=== PATIENT | female | born 1940 | race Caucasian/White ===

== ENCOUNTER 2019-11-24 12:40 | Emergency (ER) | payer MEDICARE, BC ==
[2019-11-24 13:38] LABS: #Basophils 0.1 thou/uL (0.0-0.2); #Eosinphils 0.2 thou/uL (0.0-0.7); #Lymphocytes 2.3 thou/uL (1.20-3.40); #Monocytes 0.8 thou/uL (0.11-0.59); %Basophils 0.9 % (0.0-1.0); %Eosinophils 1.8 % (0.0-10.0); %Lymphocytes 22.4 % (21.0-51.0); %Monocytes 7.9 % (0.0-10.0); Hemoglobin 11.6 g/dL (12.0-16.0); Mean Corpuscular HGB CONC 31.4 g/dL (32.0-36.0); Mean Corpuscular Hemoglobin 28.4 pg (27.0-31.0); Mean Corpuscular Volume 90.5 fL (78.0-98.0); Mean Platelet Volume 7.6 fL (7.4-10.4); Platelet Count 455 thou/uL (130-400); RBC Distribution Width 14.2 % (11.5-14.5); White Blood Cell (WBC) Count 10.4 thou/uL (4.8-10.8)
[2019-11-24 13:58] LABS: ALT (SGPT) 9 U/L (8-55); AST (SGOT) 12 U/L (5-34); Albumin 3.5 g/dL (3.4-4.8); Alkaline Phosphatase 103 U/L (40-110); Anion Gap 13 mmol/L (10-20); BUN (Urea Nitrogen) 21 mg/dL (9.8-20.1); Bilirubin, Total 0.5 mg/dL (0.2-1.2); Calc. Creatinine Clearance 0 mL/min (70-130); Calcium 9.9 mg/dL (7.8-10.44); Carbon Dioxide 28 mmol/L (23-31); Chloride 104 mmol/L (98-107); Estimated GFR-MDRD 71; Globulin 3.1 g/dL (2.4-3.5); Glucose 110 mg/dL (83-110); Protein, Total 6.6 g/dL (6.0-8.3); Sodium 141 mmol/L (136-145)
--- NOTE | 2019-11-24 14:31 | RAD ---
Exam: XR Foot Rt 3 View STANDARD HISTORY: Right foot wound. COMPARISON: None FINDINGS: There is a prominent soft tissue defect involving the posterior aspect right foot at the level of the posterior process of the calcaneus. Calcaneus could potentially be exposed given the degree of soft tissue defect. There is question of slight irregularity involving the posterior inferior portion of the calcaneus. Osteomyelitis in this region cannot be excluded, and MRI would be more sensitive study for further evaluation. Remote fracture and deformity of the right fifth metatarsal is seen. There is evidence of osteopenia greatest involving the tarsal bones and at the level of the metatarsal phalangeal joints in a juxta-articular location. No acute fracture is visualized. Subcutaneous soft tissue swelling is seen at the dorsal aspect of the foot greater at the level of th e forefoot. IMPRESSION: Large soft tissue defect posterior to the level of the calcaneus with slight irregularity involving t he more inferior aspect of the posterior process of the calcaneus. This could be related to overlying artifact, but subtle osseous destruction related to osteomyelitis could not be entirely exc luded. MRI of the right foot before and after the administration of intravenous contrast is recommended for further evaluation. Subcutaneous soft tissue swelling about the foot greatest involving the forefoot.
== END 2019-11-24 16:07 | disposition home or self-care (01) ==
LOC: ERS 12:40
DX: L97.429 Non-pressure chronic ulcer of left heel and midfoot with unspecified severity (principal); L97.419 Non-pressure chronic ulcer of right heel and midfoot with unspecified severity; L08.9 Local infection of the skin and subcutaneous tissue, unspecified; E11.9 Type 2 diabetes mellitus without complications; I10 Essential (primary) hypertension; Z85.3 Personal history of malignant neoplasm of breast
CPT/HCPCS: 36415; 80053; 85025; 85652; 86140

== ENCOUNTER 2022-03-21 06:28 | Inpatient (IN) | payer MEDICARE, MEDICAID ==
[2022-03-21 07:31] LABS: #Basophils 0.1 thou/uL (0.0-0.2); #Eosinphils 0.1 thou/uL (0.0-0.7); #Lymphocytes 2.5 thou/uL (1.20-3.40); #Monocytes 1.3 thou/uL (0.11-0.59); %Basophils 0.4 % (0.0-1.0); %Eosinophils 0.5 % (0.0-10.0); %Lymphocytes 16.6 % (21.0-51.0); %Monocytes 8.9 % (0.0-10.0); %Neutrophils 73.6 % (42.0-75.0); Mean Corpuscular HGB CONC 31.4 g/dL (32.0-36.0); Mean Corpuscular Hemoglobin 29.4 pg (27.0-31.0); Mean Corpuscular Volume 93.5 fl (78.0-98.0); Mean Platelet Volume 8.5 fL (7.4-10.4); Platelet Count 366 10x3/uL (130-400); RBC Distribution Width 12.2 % (11.5-14.5); Red Blood Cell (RBC) Count 4.43 mill/uL (4.20-5.40); White Blood Cell (WBC) Count 14.9 10x3/uL (4.8-10.8)
[2022-03-21 07:41] LABS: PTT 32.6 sec (22.9-36.1); Prothrombin Time 13.9 sec (12.0-14.7)
[2022-03-21 07:47] LABS: ALT (SGPT) 9 U/L (8-55); AST (SGOT) 11 U/L (5-34); Albumin 3.7 g/dL (3.4-4.8); Alkaline Phosphatase 90 U/L (40-110); Anion Gap 15 mmol/L (10-20); BUN (Urea Nitrogen) 30 mg/dL (9.8-20.1); Bilirubin, Total 0.2 mg/dL (0.2-1.2); Calc. Creatinine Clearance 0 mL/min (70-130); Calcium 9.9 mg/dL (7.8-10.44); Carbon Dioxide 26 mmol/L (23-31); Chloride 106 mmol/L (98-107); Estimated GFR 68; Globulin 3.5 g/dL (2.4-3.5); Glucose 75 mg/dL (83-110); Magnesium 1.9 mg/dL (1.6-2.6); Potassium 4.8 mmol/L (3.5-5.1); Protein, Total 7.2 g/dL (5.8-8.1); Sodium 142 mmol/L (136-145)
[2022-03-21] MEDS ORDERED: Cefepime 2 GM VIAL ONE (07:47)
[2022-03-21] MEDS ORDERED: Vancomycin 1.5 GRAM/300 ML BAG 1.5 GM in Premix Bag 1 BAG IVPB SCH (08:30)
[2022-03-21 09:32] LABS: SARS-CoV-2 NAA Rapid Test Not Detected (NotDetected)
[2022-03-21 10:28] LABS: Lactic Acid 3.1 mmol/L (0.5-2.2)
[2022-03-21] MEDS ORDERED: Dextrose 50% Abboject 50 ML SYRINGE SLOW IVP PRN (10:29)
[2022-03-21] MEDS ORDERED: Dextrose 5% in Water 1,000 ML IV PRN (10:29)
[2022-03-21] MEDS ORDERED: Ondansetron ODT 4 MG TAB PO PRN (10:30)
[2022-03-21] MEDS ORDERED: Senokot S 8.6-50 MG TAB PO PRN (10:30)
[2022-03-21] MEDS ORDERED: Ondansetron PF 4 MG/2 ML Vial IVP PRN (10:30)
[2022-03-21] MEDS ORDERED: Sodium Chloride 0.9% 250 ML IV SCH (10:45)
[2022-03-21] MEDS ORDERED: Heparin 1,000 UNITS/ML VIAL ONE (11:04)
[2022-03-21 13:41] VITALS: BMI 20.8
[2022-03-21] MEDS ORDERED: traMADol HCl 50 MG TAB PO PRN (16:20)
[2022-03-21] MEDS ORDERED: Milk Of Magnesia 30 ML UDCUP PO PRN (16:21)
[2022-03-21] MEDS ORDERED: Lisinopril 20 MG TAB PO SCH (16:45)
[2022-03-21] MEDS: Cefepime 1 GM in Sodium Chloride 0.9% 100 ML IVPB SCH (20:07)
[2022-03-21] MEDS: Melatonin 3 MG TAB PO SCH (20:08)
[2022-03-21] MEDS: Ferrous Sulfate 325 MG TAB PO SCH (20:08)
[2022-03-21] MEDS: hydrALAZINE 25 MG TAB PO SCH (20:08)
[2022-03-21] MEDS: cloNIDine 0.1 MG TAB PO PRN (22:53)
[2022-03-22 06:28] LABS: Anion Gap 9 mmol/L (10-20); BUN (Urea Nitrogen) 22 mg/dL (9.8-20.1); Calc. Creatinine Clearance 62 mL/min (70-130); Calcium 9.2 mg/dL (7.8-10.44); Carbon Dioxide 25 mmol/L (23-31); Chloride 110 mmol/L (98-107); Estimated GFR 82; Glucose 91 mg/dL (83-110); Potassium 4.3 mmol/L (3.5-5.1); Sodium 140 mmol/L (136-145)
[2022-03-22 07:17] LABS: #Basophils 0.1 thou/uL (0.0-0.2); #Eosinphils 0.2 thou/uL (0.0-0.7); #Lymphocytes 2.4 thou/uL (1.20-3.40); #Monocytes 0.7 thou/uL (0.11-0.59); #Neutrophils 7.4 thou/uL (1.40-6.50); %Basophils 0.9 % (0.0-1.0); %Eosinophils 1.7 % (0.0-10.0); %Lymphocytes 21.8 % (21.0-51.0); %Monocytes 6.7 % (0.0-10.0); %Neutrophils 68.8 % (42.0-75.0); Hemoglobin 11.8 g/dL (12.0-16.0); Mean Corpuscular HGB CONC 31.7 g/dL (32.0-36.0); Mean Corpuscular Hemoglobin 29.8 pg (27.0-31.0); Mean Corpuscular Volume 93.9 fl (78.0-98.0); Mean Platelet Volume 8.5 fL (7.4-10.4); Platelet Count 307 10x3/uL (130-400); RBC Distribution Width 12.1 % (11.5-14.5); Red Blood Cell (RBC) Count 3.95 mill/uL (4.20-5.40); White Blood Cell (WBC) Count 10.8 10x3/uL (4.8-10.8)
[2022-03-22 07:28] LABS: Hemoglobin A1c 5.8 % (4.0-6.0)
[2022-03-22] MEDS: Cefepime 1 GM in Sodium Chloride 0.9% 100 ML IVPB SCH ×2 (07:54→20:47)
[2022-03-22] MEDS: Lisinopril 20 MG TAB PO SCH (07:59)
[2022-03-22] MEDS: Ferrous Sulfate 325 MG TAB PO SCH ×3 (07:59→20:46)
[2022-03-22] MEDS: Polyethylene Glycol 3350 17 GM Packet PO SCH (07:59)
[2022-03-22] MEDS: Multivitamin W/ Minerals 1 TAB PO SCH (07:59)
[2022-03-22] MEDS: Ascorbic Acid 500 mg Chewable Tablet PO SCH (08:00)
[2022-03-22] MEDS: hydrALAZINE 25 MG TAB PO SCH ×2 (08:00→20:46)
[2022-03-22] MEDS: Vancomycin 1 GM in Premix Bag 1 BAG IVPB SCH (09:34)
[2022-03-22] MEDS: Melatonin 3 MG TAB PO SCH (20:46)
[2022-03-23] MEDS: cloNIDine 0.1 MG TAB PO PRN (05:31)
[2022-03-23 06:59] LABS: #Basophils 0.1 thou/uL (0.0-0.2); #Eosinphils 0.1 thou/uL (0.0-0.7); #Lymphocytes 2.9 thou/uL (1.20-3.40); #Monocytes 0.9 thou/uL (0.11-0.59); #Neutrophils 7.7 thou/uL (1.40-6.50); %Basophils 0.6 % (0.0-1.0); %Eosinophils 1.2 % (0.0-10.0); %Lymphocytes 24.7 % (21.0-51.0); %Monocytes 7.9 % (0.0-10.0); %Neutrophils 65.7 % (42.0-75.0); Hemoglobin 11.4 g/dL (12.0-16.0); Mean Corpuscular HGB CONC 32.7 g/dL (32.0-36.0); Mean Corpuscular Hemoglobin 30.2 pg (27.0-31.0); Mean Corpuscular Volume 92.4 fl (78.0-98.0); Mean Platelet Volume 7.9 fL (7.4-10.4); Platelet Count 234 10x3/uL (130-400); RBC Distribution Width 12.1 % (11.5-14.5); Red Blood Cell (RBC) Count 3.77 mill/uL (4.20-5.40); White Blood Cell (WBC) Count 11.7 10x3/uL (4.8-10.8)
[2022-03-23 07:18] LABS: Potassium 4.4 mmol/L (3.5-5.1); Sodium 139 mmol/L (136-145)
[2022-03-23 07:19] LABS: Anion Gap 13 mmol/L (10-20); BUN (Urea Nitrogen) 24 mg/dL (9.8-20.1); Calc. Creatinine Clearance 60 mL/min (70-130); Calcium 8.7 mg/dL (7.8-10.44); Carbon Dioxide 19 mmol/L (23-31); Chloride 111 mmol/L (98-107); Estimated GFR 78; Glucose 145 mg/dL (83-110)
[2022-03-23] MEDS: hydrALAZINE 25 MG TAB PO SCH ×4 (08:25→20:10)
[2022-03-23] MEDS: Multivitamin W/ Minerals 1 TAB PO SCH (08:25)
[2022-03-23] MEDS: Cefepime 1 GM in Sodium Chloride 0.9% 100 ML IVPB SCH ×2 (08:25→20:11)
[2022-03-23] MEDS: Ferrous Sulfate 325 MG TAB PO SCH ×3 (08:25→20:11)
[2022-03-23] MEDS: Lisinopril 20 MG TAB PO SCH ×2 (08:25→10:50)
[2022-03-23] MEDS: Polyethylene Glycol 3350 17 GM Packet PO SCH (08:25)
[2022-03-23] MEDS: Ascorbic Acid 500 mg Chewable Tablet PO SCH (08:26)
[2022-03-23 10:10] LABS: Vancomycin, Trough 14.9 ug/mL
[2022-03-23] MEDS: Vancomycin 1 GM in Premix Bag 1 BAG IVPB SCH (10:42)
[2022-03-23] MEDS: Melatonin 3 MG TAB PO SCH (20:10)
[2022-03-24] MEDS: Cefepime 1 GM in Sodium Chloride 0.9% 100 ML IVPB SCH ×2 (08:42→20:13)
[2022-03-24] MEDS: Polyethylene Glycol 3350 17 GM Packet PO SCH (08:47)
[2022-03-24] MEDS: Ascorbic Acid 500 mg Chewable Tablet PO SCH (08:48)
[2022-03-24] MEDS: Multivitamin W/ Minerals 1 TAB PO SCH (08:48)
[2022-03-24] MEDS: Aspirin 81 mg Enteric Coated Tablet PO SCH (08:48)
[2022-03-24] MEDS: Ferrous Sulfate 325 MG TAB PO SCH ×3 (08:49→20:12)
[2022-03-24] MEDS: hydrALAZINE 25 MG TAB PO SCH ×2 (08:55→20:11)
[2022-03-24] MEDS: Lisinopril 20 MG TAB PO SCH (08:55)
[2022-03-24] MEDS: Vancomycin 1 GM in Premix Bag 1 BAG IVPB SCH (10:08)
[2022-03-24 10:28] LABS: #Basophils 0.1 thou/uL (0.0-0.2); #Eosinphils 0.2 thou/uL (0.0-0.7); #Lymphocytes 2.9 thou/uL (1.20-3.40); #Monocytes 0.8 thou/uL (0.11-0.59); #Neutrophils 8.7 thou/uL (1.40-6.50); %Basophils 0.4 % (0.0-1.0); %Eosinophils 1.4 % (0.0-10.0); %Monocytes 6.6 % (0.0-10.0); %Neutrophils 68.6 % (42.0-75.0); Hemoglobin 11.5 g/dL (12.0-16.0); Mean Corpuscular HGB CONC 32.2 g/dL (32.0-36.0); Mean Corpuscular Hemoglobin 30.3 pg (27.0-31.0); Mean Corpuscular Volume 93.9 fl (78.0-98.0); Mean Platelet Volume 7.5 fL (7.4-10.4); Platelet Count 339 10x3/uL (130-400); RBC Distribution Width 12.1 % (11.5-14.5); Red Blood Cell (RBC) Count 3.79 mill/uL (4.20-5.40); White Blood Cell (WBC) Count 12.6 10x3/uL (4.8-10.8)
[2022-03-24 10:47] LABS: Anion Gap 13 mmol/L (10-20); BUN (Urea Nitrogen) 28 mg/dL (9.8-20.1); Calc. Creatinine Clearance 52 mL/min (70-130); Calcium 8.8 mg/dL (7.8-10.44); Carbon Dioxide 21 mmol/L (23-31); Cardiac Risk 6.2 (Less than 4.5); Chloride 111 mmol/L (98-107); Cholesterol 187 mg/dl (< 200 Desired); Estimated GFR 66; Glucose 232 mg/dL (83-110); HDL Cholesterol 30 mg/dL (>60 Neg Risk); LDL Cholesterol, Calculated 126 mg/dL; Potassium 4.1 mmol/L (3.5-5.1); Sodium 141 mmol/L (136-145); Triglycerides 155 mg/dL (Less than 150)
[2022-03-24] MEDS ORDERED: Dextrose 5% in Water 1,000 ML IV PRN (13:56)
[2022-03-24] MEDS ORDERED: Dextrose 50% Abboject 50 ML SYRINGE SLOW IVP PRN (13:56)
[2022-03-24] MEDS: HumaLOG 300 UNITS/3 ML VIAL SC PRN ×2 (18:34→20:27)
[2022-03-24] MEDS: Melatonin 3 MG TAB PO SCH (20:10)
[2022-03-24] MEDS: Atorvastatin Calcium 20 MG TAB PO SCH (20:12)
[2022-03-25] MEDS: cloNIDine 0.1 MG TAB PO PRN (00:09)
[2022-03-25] MEDS: hydrALAZINE 25 MG TAB PO SCH ×4 (05:51→20:31)
[2022-03-25] MEDS: Cefepime 1 GM in Sodium Chloride 0.9% 100 ML IVPB SCH ×2 (08:30→20:26)
[2022-03-25] MEDS: Aspirin 81 mg Enteric Coated Tablet PO SCH (08:44)
[2022-03-25] MEDS: Ascorbic Acid 500 mg Chewable Tablet PO SCH (08:44)
[2022-03-25] MEDS: Ferrous Sulfate 325 MG TAB PO SCH ×3 (08:44→20:30)
[2022-03-25] MEDS: Polyethylene Glycol 3350 17 GM Packet PO SCH (08:45)
[2022-03-25] MEDS: Multivitamin W/ Minerals 1 TAB PO SCH (08:45)
[2022-03-25] MEDS: Lisinopril 20 MG TAB PO SCH (08:45)
[2022-03-25 09:48] LABS: Vancomycin, Trough 19.3 ug/mL
[2022-03-25] MEDS: Vancomycin 1 GM in Premix Bag 1 BAG IVPB SCH (10:16)
[2022-03-25] MEDS: HumaLOG 300 UNITS/3 ML VIAL SC PRN ×3 (12:08→20:33)
[2022-03-25] MEDS: Acetaminophen 325 MG TAB PO PRN (18:38)
[2022-03-25] MEDS: Docusate 100 MG CAP PO SCH (20:31)
[2022-03-25] MEDS: Atorvastatin Calcium 20 MG TAB PO SCH (20:31)
[2022-03-25] MEDS: Melatonin 3 MG TAB PO SCH (20:32)
[2022-03-26 06:56] LABS: #Basophils 0.1 thou/uL (0.0-0.2); #Eosinphils 0.5 thou/uL (0.0-0.7); #Lymphocytes 3.7 thou/uL (1.20-3.40); #Monocytes 0.9 thou/uL (0.11-0.59); #Neutrophils 8.6 thou/uL (1.40-6.50); %Basophils 0.8 % (0.0-1.0); %Eosinophils 3.6 % (0.0-10.0); %Lymphocytes 26.6 % (21.0-51.0); %Monocytes 6.3 % (0.0-10.0); %Neutrophils 62.7 % (42.0-75.0); Mean Corpuscular HGB CONC 31.6 g/dL (32.0-36.0); Mean Corpuscular Hemoglobin 29.6 pg (27.0-31.0); Mean Corpuscular Volume 93.9 fl (78.0-98.0); Mean Platelet Volume 7.7 fL (7.4-10.4); Platelet Count 368 10x3/uL (130-400); RBC Distribution Width 12.1 % (11.5-14.5); Red Blood Cell (RBC) Count 3.72 mill/uL (4.20-5.40); White Blood Cell (WBC) Count 13.7 10x3/uL (4.8-10.8)
[2022-03-26 07:11] LABS: Anion Gap 13 mmol/L (10-20); BUN (Urea Nitrogen) 37 mg/dL (9.8-20.1); Calc. Creatinine Clearance 54 mL/min (70-130); Calcium 9.1 mg/dL (7.8-10.44); Carbon Dioxide 22 mmol/L (23-31); Chloride 111 mmol/L (98-107); Estimated GFR 69; Glucose 152 mg/dL (83-110); Potassium 4.5 mmol/L (3.5-5.1); Sodium 141 mmol/L (136-145)
[2022-03-26] MEDS: Polyethylene Glycol 3350 17 GM Packet PO SCH (08:14)
[2022-03-26] MEDS: Cefepime 1 GM in Sodium Chloride 0.9% 100 ML IVPB SCH ×2 (08:14→21:01)
[2022-03-26] MEDS: Lisinopril 20 MG TAB PO SCH (08:15)
[2022-03-26] MEDS: Ascorbic Acid 500 mg Chewable Tablet PO SCH (08:15)
[2022-03-26] MEDS: Aspirin 81 mg Enteric Coated Tablet PO SCH (08:15)
[2022-03-26] MEDS: hydrALAZINE 25 MG TAB PO SCH ×3 (08:15→21:08)
[2022-03-26] MEDS: Docusate 100 MG CAP PO SCH ×2 (08:15→21:01)
[2022-03-26] MEDS: Multivitamin W/ Minerals 1 TAB PO SCH (08:15)
[2022-03-26] MEDS: Ferrous Sulfate 325 MG TAB PO SCH ×3 (08:16→21:00)
[2022-03-26] MEDS: Vancomycin 1 GM in Premix Bag 1 BAG IVPB SCH (10:49)
[2022-03-26] MEDS: HumaLOG 300 UNITS/3 ML VIAL SC PRN ×3 (12:48→22:00)
[2022-03-26] MEDS: Atorvastatin Calcium 20 MG TAB PO SCH (21:01)
[2022-03-26] MEDS: Melatonin 3 MG TAB PO SCH (21:08)
[2022-03-27 07:29] LABS: #Basophils 0.1 thou/uL (0.0-0.2); #Eosinphils 0.5 thou/uL (0.0-0.7); #Lymphocytes 3.8 thou/uL (1.20-3.40); #Monocytes 1.1 thou/uL (0.11-0.59); #Neutrophils 10.1 thou/uL (1.40-6.50); %Basophils 0.6 % (0.0-1.0); %Eosinophils 3.4 % (0.0-10.0); %Lymphocytes 24.6 % (21.0-51.0); %Monocytes 6.8 % (0.0-10.0); %Neutrophils 64.7 % (42.0-75.0); Hemoglobin 11.9 g/dL (12.0-16.0); Mean Corpuscular HGB CONC 31.5 g/dL (32.0-36.0); Mean Corpuscular Hemoglobin 29.7 pg (27.0-31.0); Mean Corpuscular Volume 94.3 fl (78.0-98.0); Mean Platelet Volume 7.6 fL (7.4-10.4); Platelet Count 382 10x3/uL (130-400); RBC Distribution Width 12.3 % (11.5-14.5); White Blood Cell (WBC) Count 15.6 10x3/uL (4.8-10.8)
[2022-03-27 07:54] LABS: Anion Gap 12 mmol/L (10-20); BUN (Urea Nitrogen) 40 mg/dL (9.8-20.1); Calc. Creatinine Clearance 46 mL/min (70-130); Calcium 9.2 mg/dL (7.8-10.44); Carbon Dioxide 22 mmol/L (23-31); Chloride 111 mmol/L (98-107); Estimated GFR 57; Glucose 152 mg/dL (83-110); Potassium 4.4 mmol/L (3.5-5.1); Sodium 141 mmol/L (136-145)
[2022-03-27] MEDS: Cefepime 1 GM in Sodium Chloride 0.9% 100 ML IVPB SCH ×2 (08:06→20:48)
[2022-03-27] MEDS: Docusate 100 MG CAP PO SCH ×2 (08:07→20:46)
[2022-03-27] MEDS: hydrALAZINE 25 MG TAB PO SCH ×3 (08:07→20:46)
[2022-03-27] MEDS: Lisinopril 20 MG TAB PO SCH (08:08)
[2022-03-27] MEDS: Polyethylene Glycol 3350 17 GM Packet PO SCH (08:08)
[2022-03-27] MEDS: Aspirin 81 mg Enteric Coated Tablet PO SCH (08:08)
[2022-03-27] MEDS: Ascorbic Acid 500 mg Chewable Tablet PO SCH (08:08)
[2022-03-27] MEDS: Multivitamin W/ Minerals 1 TAB PO SCH (08:08)
[2022-03-27] MEDS: Ferrous Sulfate 325 MG TAB PO SCH ×3 (08:08→20:47)
[2022-03-27] MEDS: Vancomycin 1 GM in Premix Bag 1 BAG IVPB SCH (09:37)
[2022-03-27 09:56] LABS: Vancomycin, Trough 21.5 ug/mL
[2022-03-27] MEDS ORDERED: Vancomycin HCl 750 MG in Sodium Chloride 0.9% 250 ML 250 ML IVPB SCH (10:30)
[2022-03-27] MEDS: HumaLOG 300 UNITS/3 ML VIAL SC PRN ×2 (12:47→18:04)
[2022-03-27] MEDS: Atorvastatin Calcium 20 MG TAB PO SCH (20:47)
[2022-03-27] MEDS: Melatonin 3 MG TAB PO SCH (20:47)
[2022-03-27 22:36] LABS: Vancomycin, Random 22.8 ug/mL (See Comment)
[2022-03-28 06:47] LABS: #Basophils 0.1 thou/uL (0.0-0.2); #Eosinphils 0.6 thou/uL (0.0-0.7); #Lymphocytes 4.1 thou/uL (1.20-3.40); #Monocytes 1.1 thou/uL (0.11-0.59); #Neutrophils 9.3 thou/uL (1.40-6.50); %Basophils 0.6 % (0.0-1.0); %Eosinophils 3.8 % (0.0-10.0); %Lymphocytes 27.1 % (21.0-51.0); %Monocytes 7.4 % (0.0-10.0); Hemoglobin 11.6 g/dL (12.0-16.0); Mean Corpuscular HGB CONC 32.8 g/dL (32.0-36.0); Mean Corpuscular Hemoglobin 30.7 pg (27.0-31.0); Mean Corpuscular Volume 93.6 fl (78.0-98.0); Mean Platelet Volume 7.7 fL (7.4-10.4); Platelet Count 341 10x3/uL (130-400); RBC Distribution Width 12.3 % (11.5-14.5); Red Blood Cell (RBC) Count 3.78 mill/uL (4.20-5.40); White Blood Cell (WBC) Count 15.2 10x3/uL (4.8-10.8)
[2022-03-28 07:31] LABS: Anion Gap 10 mmol/L (10-20); BUN (Urea Nitrogen) 49 mg/dL (9.8-20.1); Calc. Creatinine Clearance 46 mL/min (70-130); Calcium 9.2 mg/dL (7.8-10.44); Carbon Dioxide 24 mmol/L (23-31); Chloride 112 mmol/L (98-107); Estimated GFR 58; Glucose 162 mg/dL (83-110); Potassium 4.9 mmol/L (3.5-5.1); Sodium 141 mmol/L (136-145)
[2022-03-28] MEDS: Cefepime 1 GM in Sodium Chloride 0.9% 100 ML IVPB SCH ×2 (08:20→19:22)
[2022-03-28] MEDS: Polyethylene Glycol 3350 17 GM Packet PO SCH (08:20)
[2022-03-28] MEDS: Lisinopril 20 MG TAB PO SCH (08:20)
[2022-03-28] MEDS: Multivitamin W/ Minerals 1 TAB PO SCH (08:21)
[2022-03-28] MEDS: hydrALAZINE 25 MG TAB PO SCH ×3 (08:21→20:02)
[2022-03-28] MEDS: Docusate 100 MG CAP PO SCH ×2 (08:21→20:02)
[2022-03-28] MEDS: Aspirin 81 mg Enteric Coated Tablet PO SCH (08:21)
[2022-03-28] MEDS: Ferrous Sulfate 325 MG TAB PO SCH ×3 (08:22→20:03)
[2022-03-28] MEDS: Ascorbic Acid 500 mg Chewable Tablet PO SCH (08:22)
[2022-03-28] MEDS: Vancomycin HCl 750 MG in Sodium Chloride 0.9% 250 ML 250 ML IVPB SCH (11:35)
[2022-03-28] MEDS: HumaLOG 300 UNITS/3 ML VIAL SC PRN ×3 (11:47→21:27)
[2022-03-28] MEDS: Acetaminophen 325 MG TAB PO PRN (17:13)
[2022-03-28] MEDS: Melatonin 3 MG TAB PO SCH (20:02)
[2022-03-28] MEDS: Atorvastatin Calcium 20 MG TAB PO SCH (20:03)
[2022-03-29 04:10] LABS: #Basophils 0.2 thou/uL (0.0-0.2); #Eosinphils 0.4 thou/uL (0.0-0.7); #Lymphocytes 3.7 thou/uL (1.20-3.40); #Monocytes 1.1 thou/uL (0.11-0.59); %Basophils 1.2 % (0.0-1.0); %Eosinophils 3.3 % (0.0-10.0); %Lymphocytes 27.6 % (21.0-51.0); %Monocytes 7.8 % (0.0-10.0); %Neutrophils 60.1 % (42.0-75.0); Hemoglobin 10.2 g/dL (12.0-16.0); Mean Corpuscular HGB CONC 32.2 g/dL (32.0-36.0); Mean Corpuscular Hemoglobin 30.1 pg (27.0-31.0); Mean Corpuscular Volume 93.4 fl (78.0-98.0); Mean Platelet Volume 8.2 fL (7.4-10.4); Platelet Count 307 10x3/uL (130-400); RBC Distribution Width 12.4 % (11.5-14.5); Red Blood Cell (RBC) Count 3.39 mill/uL (4.20-5.40); White Blood Cell (WBC) Count 13.4 10x3/uL (4.8-10.8)
[2022-03-29 04:32] LABS: Anion Gap 13 mmol/L (10-20); BUN (Urea Nitrogen) 54 mg/dL (9.8-20.1); Calc. Creatinine Clearance 47 mL/min (70-130); Calcium 8.8 mg/dL (7.8-10.44); Carbon Dioxide 20 mmol/L (23-31); Chloride 112 mmol/L (98-107); Estimated GFR 59; Glucose 159 mg/dL (83-110); Potassium 4.5 mmol/L (3.5-5.1); Sodium 140 mmol/L (136-145)
[2022-03-29] MEDS: HumaLOG 300 UNITS/3 ML VIAL SC PRN ×4 (05:19→22:18)
[2022-03-29] MEDS: Polyethylene Glycol 3350 17 GM Packet PO SCH (08:28)
[2022-03-29] MEDS: Aspirin 81 mg Enteric Coated Tablet PO SCH (08:29)
[2022-03-29] MEDS: Ferrous Sulfate 325 MG TAB PO SCH ×3 (08:29→20:07)
[2022-03-29] MEDS: hydrALAZINE 25 MG TAB PO SCH ×3 (08:29→20:08)
[2022-03-29] MEDS: Multivitamin W/ Minerals 1 TAB PO SCH (08:29)
[2022-03-29] MEDS: Docusate 100 MG CAP PO SCH ×2 (08:29→20:07)
[2022-03-29] MEDS: Lisinopril 20 MG TAB PO SCH (08:29)
[2022-03-29] MEDS: Ascorbic Acid 500 mg Chewable Tablet PO SCH (08:29)
[2022-03-29] MEDS: Cefepime 1 GM in Sodium Chloride 0.9% 100 ML IVPB SCH (08:30)
[2022-03-29] MEDS: Vancomycin HCl 750 MG in Sodium Chloride 0.9% 250 ML 250 ML IVPB SCH (10:36)
[2022-03-29] MEDS ORDERED: cefTRIAXone\\ROCEPHIN 2 GM in Sodium Chloride 0.9% 100 ML IVPB SCH (12:00)
[2022-03-29] MEDS: cefTRIAXone\\ROCEPHIN 2 GM in Sodium Chloride 0.9% 100 ML IVPB SCH (15:14)
[2022-03-29] MEDS: Atorvastatin Calcium 20 MG TAB PO SCH (20:07)
[2022-03-29] MEDS: Melatonin 3 MG TAB PO SCH (20:08)
[2022-03-29] MEDS: Acetaminophen 325 MG TAB PO PRN (20:08)
[2022-03-30] MEDS: cloNIDine 0.1 MG TAB PO PRN (05:23)
[2022-03-30] MEDS: Aspirin 81 mg Enteric Coated Tablet PO SCH (08:21)
[2022-03-30] MEDS: hydrALAZINE 25 MG TAB PO SCH ×3 (08:21→21:04)
[2022-03-30] MEDS: Ascorbic Acid 500 mg Chewable Tablet PO SCH (08:21)
[2022-03-30] MEDS: Ferrous Sulfate 325 MG TAB PO SCH ×3 (08:21→21:05)
[2022-03-30] MEDS: Polyethylene Glycol 3350 17 GM Packet PO SCH (08:22)
[2022-03-30] MEDS: Docusate 100 MG CAP PO SCH ×2 (08:22→21:04)
[2022-03-30] MEDS: Multivitamin W/ Minerals 1 TAB PO SCH (08:22)
[2022-03-30] MEDS: Lisinopril 20 MG TAB PO SCH (08:22)
[2022-03-30] MEDS: Vancomycin HCl 750 MG in Sodium Chloride 0.9% 250 ML 250 ML IVPB SCH (09:27)
[2022-03-30 10:38] LABS: Vancomycin, Trough 27.9 ug/mL
[2022-03-30] MEDS: cefTRIAXone\\ROCEPHIN 2 GM in Sodium Chloride 0.9% 100 ML IVPB SCH (14:49)
[2022-03-30] MEDS: Melatonin 3 MG TAB PO SCH (21:05)
[2022-03-30] MEDS: Atorvastatin Calcium 20 MG TAB PO SCH (21:05)
[2022-03-30] MEDS: HumaLOG 300 UNITS/3 ML VIAL SC PRN (21:11)
[2022-03-31 04:32] LABS: #Basophils 0.1 thou/uL (0.0-0.2); #Eosinphils 0.5 thou/uL (0.0-0.7); #Monocytes 1.3 thou/uL (0.11-0.59); #Neutrophils 10.1 thou/uL (1.40-6.50); %Basophils 0.7 % (0.0-1.0); %Eosinophils 2.9 % (0.0-10.0); %Lymphocytes 25.2 % (21.0-51.0); %Monocytes 7.9 % (0.0-10.0); %Neutrophils 63.3 % (42.0-75.0); Hemoglobin 11.3 g/dL (12.0-16.0); Mean Corpuscular HGB CONC 35.1 g/dL (32.0-36.0); Mean Corpuscular Hemoglobin 32.9 pg (27.0-31.0); Mean Corpuscular Volume 93.7 fl (78.0-98.0); Mean Platelet Volume 7.9 fL (7.4-10.4); Platelet Count 333 10x3/uL (130-400); RBC Distribution Width 12.5 % (11.5-14.5); Red Blood Cell (RBC) Count 3.44 mill/uL (4.20-5.40)
[2022-03-31] MEDS: Aspirin 81 mg Enteric Coated Tablet PO SCH (08:51)
[2022-03-31] MEDS: Lisinopril 20 MG TAB PO SCH (08:51)
[2022-03-31] MEDS: hydrALAZINE 25 MG TAB PO SCH ×3 (08:51→20:11)
[2022-03-31] MEDS: Ascorbic Acid 500 mg Chewable Tablet PO SCH (08:51)
[2022-03-31] MEDS: Multivitamin W/ Minerals 1 TAB PO SCH (08:51)
[2022-03-31] MEDS: Ferrous Sulfate 325 MG TAB PO SCH ×3 (08:51→20:11)
[2022-03-31] MEDS: Polyethylene Glycol 3350 17 GM Packet PO SCH (08:51)
[2022-03-31] MEDS: Docusate 100 MG CAP PO SCH ×2 (08:52→20:11)
[2022-03-31 10:24] LABS: Vancomycin, Random 17.8 ug/mL (See Comment)
[2022-03-31] MEDS: Vancomycin HCl 500 MG in Sodium Chloride 0.9% 100 ML IVPB SCH (11:54)
[2022-03-31] MEDS: HumaLOG 300 UNITS/3 ML VIAL SC PRN ×2 (12:02→16:58)
[2022-03-31] MEDS: cefTRIAXone\\ROCEPHIN 2 GM in Sodium Chloride 0.9% 100 ML IVPB SCH (14:31)
[2022-03-31] MEDS ORDERED: traMADol HCl 50 MG TAB PO PRN (17:49)
[2022-03-31] MEDS: Atorvastatin Calcium 20 MG TAB PO SCH (20:10)
[2022-03-31] MEDS: Melatonin 3 MG TAB PO SCH (20:11)
[2022-04-01 04:11] LABS: #Basophils 0.1 thou/uL (0.0-0.2); #Eosinphils 0.4 thou/uL (0.0-0.7); #Lymphocytes 4.2 thou/uL (1.20-3.40); #Monocytes 1.4 thou/uL (0.11-0.59); %Basophils 0.7 % (0.0-1.0); %Eosinophils 2.3 % (0.0-10.0); %Lymphocytes 27.9 % (21.0-51.0); %Monocytes 9.1 % (0.0-10.0); %Neutrophils 59.9 % (42.0-75.0); Hemoglobin 10.9 g/dL (12.0-16.0); Mean Corpuscular HGB CONC 31.5 g/dL (32.0-36.0); Mean Corpuscular Hemoglobin 29.6 pg (27.0-31.0); Mean Platelet Volume 8.1 fL (7.4-10.4); Platelet Count 336 10x3/uL (130-400); RBC Distribution Width 12.6 % (11.5-14.5); Red Blood Cell (RBC) Count 3.66 mill/uL (4.20-5.40); White Blood Cell (WBC) Count 15.1 10x3/uL (4.8-10.8)
[2022-04-01 04:28] LABS: Anion Gap 13 mmol/L (10-20); BUN (Urea Nitrogen) 53 mg/dL (9.8-20.1); Calc. Creatinine Clearance 39 mL/min (70-130); Calcium 9.1 mg/dL (7.8-10.44); Carbon Dioxide 24 mmol/L (23-31); Chloride 110 mmol/L (98-107); Estimated GFR 47; Glucose 157 mg/dL (83-110); Potassium 5.3 mmol/L (3.5-5.1); Sodium 142 mmol/L (136-145)
[2022-04-01] MEDS: Lisinopril 20 MG TAB PO SCH (08:20)
[2022-04-01] MEDS: Ascorbic Acid 500 mg Chewable Tablet PO SCH (08:20)
[2022-04-01] MEDS: Multivitamin W/ Minerals 1 TAB PO SCH (08:21)
[2022-04-01] MEDS: Aspirin 81 mg Enteric Coated Tablet PO SCH (08:21)
[2022-04-01] MEDS: hydrALAZINE 25 MG TAB PO SCH ×3 (08:21→20:42)
[2022-04-01] MEDS: Docusate 100 MG CAP PO SCH ×2 (08:21→20:42)
[2022-04-01] MEDS: Ferrous Sulfate 325 MG TAB PO SCH ×3 (08:21→20:43)
[2022-04-01] MEDS: Polyethylene Glycol 3350 17 GM Packet PO SCH (08:22)
[2022-04-01] MEDS: Sodium Chloride 0.9% 1,000 ML IV SCH (11:14)
[2022-04-01] MEDS: Vancomycin HCl 500 MG in Sodium Chloride 0.9% 100 ML IVPB SCH (12:25)
[2022-04-01] MEDS: cefTRIAXone\\ROCEPHIN 2 GM in Sodium Chloride 0.9% 100 ML IVPB SCH (15:35)
[2022-04-01] MEDS: HumaLOG 300 UNITS/3 ML VIAL SC PRN (18:07)
[2022-04-01] MEDS: Melatonin 3 MG TAB PO SCH (20:43)
[2022-04-01] MEDS: Atorvastatin Calcium 20 MG TAB PO SCH (20:43)
[2022-04-02] MEDS: Sodium Chloride 0.9% 1,000 ML IV SCH ×2 (01:52→16:34)
[2022-04-02 05:42] LABS: Anion Gap 11 mmol/L (10-20); BUN (Urea Nitrogen) 49 mg/dL (9.8-20.1); Calc. Creatinine Clearance 48 mL/min (70-130); Carbon Dioxide 24 mmol/L (23-31); Chloride 112 mmol/L (98-107); Estimated GFR 60; Glucose 139 mg/dL (83-110); Potassium 4.7 mmol/L (3.5-5.1); Sodium 142 mmol/L (136-145)
[2022-04-02 08:12] VITALS: TEMP 97.5
[2022-04-02] MEDS: hydrALAZINE 25 MG TAB PO SCH ×2 (08:15→14:43)
[2022-04-02] MEDS: Docusate 100 MG CAP PO SCH (08:16)
[2022-04-02] MEDS: Lisinopril 20 MG TAB PO SCH (08:16)
[2022-04-02] MEDS: Ferrous Sulfate 325 MG TAB PO SCH ×2 (08:17→14:43)
[2022-04-02] MEDS: Multivitamin W/ Minerals 1 TAB PO SCH (08:17)
[2022-04-02] MEDS: Ascorbic Acid 500 mg Chewable Tablet PO SCH (08:17)
[2022-04-02] MEDS: Polyethylene Glycol 3350 17 GM Packet PO SCH (08:17)
[2022-04-02] MEDS: Aspirin 81 mg Enteric Coated Tablet PO SCH (08:17)
[2022-04-02 11:45] LABS: Vancomycin, Trough 13.1 ug/mL
[2022-04-02] MEDS ORDERED: Vancomycin HCl 750 MG in Sodium Chloride 0.9% 250 ML 250 ML IVPB SCH (12:30)
[2022-04-02] MEDS: cefTRIAXone\\ROCEPHIN 2 GM in Sodium Chloride 0.9% 100 ML IVPB SCH (14:43)
[2022-04-02 14:52] VITALS: BP 180/80
[2022-04-02] MEDS: cloNIDine 0.1 MG TAB PO PRN (15:12)
[2022-04-03] MEDS ORDERED: Vancomycin HCl 750 MG in Sodium Chloride 0.9% 250 ML 250 ML IVPB SCH (13:00)
== END 2022-04-02 18:50 | DRG 871 ==
LOC: ERS 06:28 → T4-B 10:02
PROVIDERS: ADMIT Family Medicine; ATTEND Family Medicine
PROC: 3E03329 Introduction of Other Anti-infective into Peripheral Vein, Percutaneous Approach (ICD-10-PCS; principal; 2022-03-21)
PROC: 02HV33Z Insertion of Infusion Device into Superior Vena Cava, Percutaneous Approach (ICD-10-PCS; 2022-03-21)
PROC: B5181ZA Fluoroscopy of Superior Vena Cava using Low Osmolar Contrast, Guidance (ICD-10-PCS; 2022-03-21)
PROC: B548ZZA Ultrasonography of Superior Vena Cava, Guidance (ICD-10-PCS; 2022-03-21)
PROC: 3E04329 Introduction of Other Anti-infective into Central Vein, Percutaneous Approach (ICD-10-PCS; 2022-03-26)
DX: A41.02 Sepsis due to Methicillin resistant Staphylococcus aureus (principal); Z66 Do not resuscitate; A41.4 Sepsis due to anaerobes; Z20.822 Contact with and (suspected) exposure to COVID-19; Z23 Encounter for immunization; L89.614 Pressure ulcer of right heel, stage 4; L89.624 Pressure ulcer of left heel, stage 4; L97.422 Non-pressure chronic ulcer of left heel and midfoot with fat layer exposed; M86.8X7 Other osteomyelitis, ankle and foot; N17.9 Acute kidney failure, unspecified; I48.20 Chronic atrial fibrillation, unspecified; E87.20 Acidosis, unspecified; E11.621 Type 2 diabetes mellitus with foot ulcer; E11.69 Type 2 diabetes mellitus with other specified complication; E87.5 Hyperkalemia; E11.51 Type 2 diabetes mellitus with diabetic peripheral angiopathy without gangrene; F03.90 Unspecified dementia, unspecified severity, without behavioral disturbance, psychotic disturbance, mood disturbance, and anxiety; E11.40 Type 2 diabetes mellitus with diabetic neuropathy, unspecified; Z74.01 Bed confinement status; Z85.3 Personal history of malignant neoplasm of breast; Z88.2 Allergy status to sulfonamides; Z88.8 Allergy status to other drugs, medicaments and biological substances; Z79.899 Other long term (current) drug therapy; Z79.4 Long term (current) use of insulin; Z99.3 Dependence on wheelchair
CPT/HCPCS: 36415; 36416; 36569; 71045; 80048; 80053; 80061; 80202; 83036; 83605; 83735; 84443; 84484; 85025; 85610; 85652; 85730; 86140; 87040; 87070; 87077; 87186; 87205; 87811; 90471; 90732; 93005; 93923; 94760; 96361; 96365; 96367; 97139; C1751; G0009; J0692; J0696; J1644; J1815; J3370; J3490; J7050

== ENCOUNTER 2022-06-26 11:51 | Emergency (ER) | payer MEDICARE, OTHER | END 2022-06-26 17:43 | LOC: ERS 11:51 | DX: R60.0 Localized edema (principal); I70.90 Unspecified atherosclerosis; I73.9 Peripheral vascular disease, unspecified; E11.9 Type 2 diabetes mellitus without complications; I10 Essential (primary) hypertension | CPT/HCPCS: 93923; 99283 ==

== ENCOUNTER 2022-07-21 10:32 | Inpatient (IN) | payer MEDICARE, MEDICAID ==
[2022-07-21 11:51] LABS: ALT (SGPT) 9 U/L (8-55); AST (SGOT) 12 U/L (5-34); Albumin 2.9 g/dL (3.4-4.8); Alkaline Phosphatase 110 U/L (40-110); Anion Gap 16 mmol/L (10-20); BUN (Urea Nitrogen) 39 mg/dL (9.8-20.1); Bilirubin, Total Less than 0.2 mg/dL (0.2-1.2); Calc. Creatinine Clearance 0 mL/min (70-130); Calcium 9.7 mg/dL (7.8-10.44); Carbon Dioxide 21 mmol/L (23-31); Chloride 104 mmol/L (98-107); Estimated GFR 52; Globulin 3.6 g/dL (2.4-3.5); Glucose 287 mg/dL (83-110); Potassium 5.6 mmol/L (3.5-5.1); Protein, Total 6.5 g/dL (5.8-8.1); Sodium 135 mmol/L (136-145)
[2022-07-21 12:38] LABS: #Eosinphils 0.1 thou/uL (0.0-0.7); #Lymphocytes 1.8 thou/uL (1.20-3.40); #Neutrophils 13.5 thou/uL (1.40-6.50); %Basophils 0.2 % (0.0-1.0); %Eosinophils 0.7 % (0.0-10.0); %Lymphocytes 10.6 % (21.0-51.0); %Monocytes 6.3 % (0.0-10.0); %Neutrophils 82.2 % (42.0-75.0); Hemoglobin 10.7 g/dL (12.0-16.0); Mean Corpuscular HGB CONC 31.6 g/dL (32.0-36.0); Mean Corpuscular Hemoglobin 29.5 pg (27.0-31.0); Mean Corpuscular Volume 93.4 fl (78.0-98.0); Mean Platelet Volume 7.9 fL (7.4-10.4); Platelet Count 406 10x3/uL (130-400); RBC Distribution Width 11.8 % (11.5-14.5); Red Blood Cell (RBC) Count 3.63 mill/uL (4.20-5.40); White Blood Cell (WBC) Count 16.5 10x3/uL (4.8-10.8)
[2022-07-21] MEDS ORDERED: cefTRIAXone (ROCEPHIN) 2 GM VIAL ONE (12:50)
[2022-07-21] MEDS ORDERED: Ondansetron ODT 4 MG TAB PO PRN (14:16)
[2022-07-21 14:19] LABS: Anion Gap 16 mmol/L (10-20); BUN (Urea Nitrogen) 43 mg/dL (9.8-20.1); Calc. Creatinine Clearance 0 mL/min (70-130); Calcium 9.8 mg/dL (7.8-10.44); Carbon Dioxide 22 mmol/L (23-31); Chloride 104 mmol/L (98-107); Estimated GFR 53; Glucose 262 mg/dL (83-110); Potassium 5.6 mmol/L (3.5-5.1); Sodium 136 mmol/L (136-145)
[2022-07-21] MEDS ORDERED: Dextrose 5% in Water 1,000 ML IV PRN (14:25)
[2022-07-21] MEDS ORDERED: Dextrose 50% Abboject 50 ML SYRINGE SLOW IVP PRN (14:25)
[2022-07-21] MEDS ORDERED: Meropenem 1 GM in Sodium Chloride 0.9% 100 ML IVPB SCH ×2 (14:30→15:15)
[2022-07-21] MEDS ORDERED: LOKELMA 10 GM PACKET PO SCH (14:45)
[2022-07-21] MEDS ORDERED: Vancomycin 1.5 GRAM/300 ML BAG 1.5 GM in Premix Bag 1 BAG IVPB SCH (15:30)
[2022-07-21] MEDS: Sodium Chloride 0.9% 1,000 ML IV SCH (18:33)
[2022-07-22 00:56] VITALS: BMI 25.4
[2022-07-22] MEDS: traMADol HCl 50 MG TAB PO SCH ×3 (01:07→20:32)
[2022-07-22] MEDS: Melatonin 3 MG TAB PO SCH ×2 (01:08→20:34)
[2022-07-22] MEDS: hydrALAZINE 25 MG TAB PO SCH ×3 (01:08→20:35)
[2022-07-22] MEDS: Meropenem 1 GM in Sodium Chloride 0.9% 100 ML IVPB SCH ×2 (01:32→16:49)
[2022-07-22 05:15] LABS: #Eosinphils 0.2 thou/uL (0.0-0.7); #Monocytes 1.3 thou/uL (0.11-0.59); #Neutrophils 13.6 thou/uL (1.40-6.50); %Basophils 0.2 % (0.0-1.0); %Eosinophils 1.2 % (0.0-10.0); %Lymphocytes 11.8 % (21.0-51.0); %Monocytes 7.3 % (0.0-10.0); %Neutrophils 79.4 % (42.0-75.0); Mean Corpuscular HGB CONC 33.1 g/dL (32.0-36.0); Mean Corpuscular Hemoglobin 30.8 pg (27.0-31.0); Mean Corpuscular Volume 92.9 fl (78.0-98.0); Mean Platelet Volume 7.4 fL (7.4-10.4); Platelet Count 427 10x3/uL (130-400); RBC Distribution Width 11.7 % (11.5-14.5); Red Blood Cell (RBC) Count 3.58 mill/uL (4.20-5.40); White Blood Cell (WBC) Count 17.2 10x3/uL (4.8-10.8)
[2022-07-22 05:36] LABS: Anion Gap 11 mmol/L (10-20); BUN (Urea Nitrogen) 40 mg/dL (9.8-20.1); Calc. Creatinine Clearance 53 mL/min (70-130); Calcium 9.6 mg/dL (7.8-10.44); Carbon Dioxide 23 mmol/L (23-31); Chloride 107 mmol/L (98-107); Estimated GFR 68; Glucose 161 mg/dL (83-110); Potassium 4.1 mmol/L (3.5-5.1); Sodium 137 mmol/L (136-145)
[2022-07-22] MEDS: Saccharomyces boulardii 250 MG CAP PO SCH (09:43)
[2022-07-22] MEDS: Polyethylene Glycol 3350 17 GM Packet PO SCH (09:43)
[2022-07-22] MEDS: HumaLOG 300 UNITS/3 ML VIAL SC PRN ×3 (12:30→20:46)
[2022-07-22] MEDS: Sodium Chloride 0.9% 1,000 ML IV SCH (16:50)
[2022-07-22] MEDS: Vancomycin 1 GM in Premix Bag 1 BAG IVPB SCH (20:35)
[2022-07-22] MEDS ORDERED: Milk Of Magnesia 30 ML UDCUP PO PRN (21:22)
[2022-07-23] MEDS: Meropenem 1 GM in Sodium Chloride 0.9% 100 ML IVPB SCH ×2 (01:12→14:43)
[2022-07-23] MEDS: hydrALAZINE 25 MG TAB PO SCH ×2 (08:56→21:06)
[2022-07-23] MEDS: Saccharomyces boulardii 250 MG CAP PO SCH (08:56)
[2022-07-23] MEDS: Polyethylene Glycol 3350 17 GM Packet PO SCH (08:56)
[2022-07-23] MEDS: traMADol HCl 50 MG TAB PO SCH ×2 (08:56→21:06)
[2022-07-23] MEDS: Multivitamin W/ Minerals 1 TAB PO SCH (08:56)
[2022-07-23] MEDS: Ferrous Sulfate 325 MG TAB PO SCH ×3 (08:57→21:07)
[2022-07-23] MEDS: Sodium Chloride 0.9% 1,000 ML IV SCH ×2 (08:57→21:12)
[2022-07-23] MEDS: Ascorbic Acid 500 mg Chewable Tablet PO SCH (08:57)
[2022-07-23 11:42] LABS: #Basophils 0.1 thou/uL (0.0-0.2); #Eosinphils 0.4 thou/uL (0.0-0.7); #Lymphocytes 2.1 thou/uL (1.20-3.40); #Monocytes 1.1 thou/uL (0.11-0.59); #Neutrophils 8.7 thou/uL (1.40-6.50); %Basophils 0.7 % (0.0-1.0); %Eosinophils 2.9 % (0.0-10.0); %Monocytes 8.7 % (0.0-10.0); %Neutrophils 70.8 % (42.0-75.0); Hemoglobin 10.7 g/dL (12.0-16.0); Mean Corpuscular HGB CONC 32.6 g/dL (32.0-36.0); Mean Corpuscular Hemoglobin 30.4 pg (27.0-31.0); Mean Corpuscular Volume 93.3 fl (78.0-98.0); Mean Platelet Volume 7.4 fL (7.4-10.4); Platelet Count 392 10x3/uL (130-400); RBC Distribution Width 11.8 % (11.5-14.5); White Blood Cell (WBC) Count 12.3 10x3/uL (4.8-10.8)
[2022-07-23 12:02] LABS: Anion Gap 12 mmol/L (10-20); BUN (Urea Nitrogen) 31 mg/dL (9.8-20.1); Calc. Creatinine Clearance 57 mL/min (70-130); Calcium 8.9 mg/dL (7.8-10.44); Carbon Dioxide 24 mmol/L (23-31); Chloride 108 mmol/L (98-107); Estimated GFR 75; Glucose 204 mg/dL (83-110); Potassium 4.3 mmol/L (3.5-5.1); Sodium 140 mmol/L (136-145)
[2022-07-23] MEDS: HumaLOG 300 UNITS/3 ML VIAL SC PRN ×2 (12:11→17:05)
[2022-07-23] MEDS: Melatonin 3 MG TAB PO SCH (21:06)
[2022-07-23] MEDS: Vancomycin 1 GM in Premix Bag 1 BAG IVPB SCH (21:08)
[2022-07-24] MEDS: Meropenem 1 GM in Sodium Chloride 0.9% 100 ML IVPB SCH (01:38)
[2022-07-24] MEDS: cloNIDine 0.1 MG TAB PO PRN (03:59)
[2022-07-24] MEDS: Ascorbic Acid 500 mg Chewable Tablet PO SCH (09:32)
[2022-07-24] MEDS: hydrALAZINE 25 MG TAB PO SCH ×2 (09:32→20:59)
[2022-07-24] MEDS: Multivitamin W/ Minerals 1 TAB PO SCH (09:33)
[2022-07-24] MEDS: traMADol HCl 50 MG TAB PO SCH ×2 (09:33→20:57)
[2022-07-24] MEDS: Ferrous Sulfate 325 MG TAB PO SCH ×3 (09:33→20:57)
[2022-07-24] MEDS: Saccharomyces boulardii 250 MG CAP PO SCH (09:33)
[2022-07-24] MEDS: Polyethylene Glycol 3350 17 GM Packet PO SCH (09:40)
[2022-07-24] MEDS: Sodium Chloride 0.9% 1,000 ML IV SCH (11:43)
[2022-07-24] MEDS: HumaLOG 300 UNITS/3 ML VIAL SC PRN ×2 (11:44→21:01)
[2022-07-24] MEDS ORDERED: Magnevist 469MG/ML 20 ML VIAL ONE (12:55)
[2022-07-24] MEDS: Cefepime 2 GM in Sodium Chloride 0.9% 100 ML IVPB SCH (14:37)
[2022-07-24] MEDS: Vancomycin 1 GM in Premix Bag 1 BAG IVPB SCH (20:59)
[2022-07-24] MEDS: Melatonin 3 MG TAB PO SCH ×2 (20:59→21:02)
[2022-07-25] MEDS: Cefepime 2 GM in Sodium Chloride 0.9% 100 ML IVPB SCH ×2 (01:43→13:32)
[2022-07-25 04:45] LABS: #Basophils 0.1 thou/uL (0.0-0.2); #Eosinphils 0.3 thou/uL (0.0-0.7); #Lymphocytes 2.5 thou/uL (1.20-3.40); #Monocytes 1.1 thou/uL (0.11-0.59); #Neutrophils 8.1 thou/uL (1.40-6.50); %Basophils 0.5 % (0.0-1.0); %Eosinophils 2.4 % (0.0-10.0); %Monocytes 9.3 % (0.0-10.0); %Neutrophils 66.9 % (42.0-75.0); Hemoglobin 10.6 g/dL (12.0-16.0); Mean Corpuscular HGB CONC 32.3 g/dL (32.0-36.0); Mean Corpuscular Hemoglobin 29.9 pg (27.0-31.0); Mean Corpuscular Volume 92.5 fl (78.0-98.0); Mean Platelet Volume 7.5 fL (7.4-10.4); Platelet Count 397 10x3/uL (130-400); RBC Distribution Width 11.7 % (11.5-14.5); Red Blood Cell (RBC) Count 3.55 mill/uL (4.20-5.40)
[2022-07-25 04:57] LABS: Anion Gap 11 mmol/L (10-20); BUN (Urea Nitrogen) 31 mg/dL (9.8-20.1); Calc. Creatinine Clearance 56 mL/min (70-130); Calcium 8.9 mg/dL (7.8-10.44); Carbon Dioxide 21 mmol/L (23-31); Chloride 108 mmol/L (98-107); Estimated GFR 73; Glucose 197 mg/dL (83-110); Potassium 4.2 mmol/L (3.5-5.1); Sodium 136 mmol/L (136-145)
[2022-07-25] MEDS: HumaLOG 300 UNITS/3 ML VIAL SC PRN (06:35)
[2022-07-25] MEDS: Sodium Chloride 0.9% 1,000 ML IV SCH (09:00)
[2022-07-25] MEDS: Saccharomyces boulardii 250 MG CAP PO SCH (09:01)
[2022-07-25] MEDS: traMADol HCl 50 MG TAB PO SCH ×2 (09:01→20:02)
[2022-07-25] MEDS: hydrALAZINE 25 MG TAB PO SCH ×2 (09:01→18:36)
[2022-07-25] MEDS: Ascorbic Acid 500 mg Chewable Tablet PO SCH (09:01)
[2022-07-25] MEDS: Ferrous Sulfate 325 MG TAB PO SCH ×3 (09:01→20:03)
[2022-07-25] MEDS: Multivitamin W/ Minerals 1 TAB PO SCH (09:01)
[2022-07-25] MEDS: Polyethylene Glycol 3350 17 GM Packet PO SCH (09:04)
[2022-07-25] MEDS: Lisinopril 10 MG TAB PO SCH (18:35)
[2022-07-25] MEDS: Vancomycin 1 GM in Premix Bag 1 BAG IVPB SCH (20:03)
[2022-07-25] MEDS: Melatonin 3 MG TAB PO SCH (20:03)
[2022-07-25 20:23] LABS: Vancomycin, Trough 20.8 ug/mL
[2022-07-26] MEDS: Cefepime 2 GM in Sodium Chloride 0.9% 100 ML IVPB SCH ×2 (02:00→14:37)
[2022-07-26] MEDS: cloNIDine 0.1 MG TAB PO PRN ×2 (03:18→12:10)
[2022-07-26] MEDS: Polyethylene Glycol 3350 17 GM Packet PO SCH (09:15)
[2022-07-26] MEDS: Multivitamin W/ Minerals 1 TAB PO SCH (09:16)
[2022-07-26] MEDS: traMADol HCl 50 MG TAB PO SCH ×2 (09:16→20:39)
[2022-07-26] MEDS: Saccharomyces boulardii 250 MG CAP PO SCH (09:20)
[2022-07-26] MEDS: hydrALAZINE 25 MG TAB PO SCH ×3 (09:20→20:40)
[2022-07-26] MEDS: Ascorbic Acid 500 mg Chewable Tablet PO SCH (09:21)
[2022-07-26] MEDS: Lisinopril 10 MG TAB PO SCH ×2 (09:21→20:40)
[2022-07-26] MEDS: Ferrous Sulfate 325 MG TAB PO SCH ×3 (09:22→20:41)
[2022-07-26] MEDS: HumaLOG 300 UNITS/3 ML VIAL SC PRN (12:04)
[2022-07-26] MEDS: Vancomycin 1 GM in Premix Bag 1 BAG IVPB SCH (20:39)
[2022-07-26] MEDS: Melatonin 3 MG TAB PO SCH (20:40)
[2022-07-27] MEDS: Cefepime 2 GM in Sodium Chloride 0.9% 100 ML IVPB SCH (02:34)
[2022-07-27] MEDS: cloNIDine 0.1 MG TAB PO PRN (05:38)
[2022-07-27 08:26] LABS: Anion Gap 12 mmol/L (10-20); BUN (Urea Nitrogen) 28 mg/dL (9.8-20.1); Calc. Creatinine Clearance 63 mL/min (70-130); Calcium 9.1 mg/dL (7.8-10.44); Carbon Dioxide 23 mmol/L (23-31); Chloride 106 mmol/L (98-107); Estimated GFR 84; Glucose 154 mg/dL (83-110); Potassium 4.2 mmol/L (3.5-5.1); Sodium 137 mmol/L (136-145)
[2022-07-27] MEDS: Multivitamin W/ Minerals 1 TAB PO SCH (08:38)
[2022-07-27] MEDS: Ascorbic Acid 500 mg Chewable Tablet PO SCH (08:38)
[2022-07-27] MEDS: Polyethylene Glycol 3350 17 GM Packet PO SCH (08:38)
[2022-07-27] MEDS: Saccharomyces boulardii 250 MG CAP PO SCH (08:38)
[2022-07-27] MEDS: traMADol HCl 50 MG TAB PO SCH ×2 (08:38→19:58)
[2022-07-27] MEDS: Ferrous Sulfate 325 MG TAB PO SCH ×3 (08:39→19:58)
[2022-07-27] MEDS: Lisinopril 10 MG TAB PO SCH (08:39)
[2022-07-27] MEDS: hydrALAZINE 25 MG TAB PO SCH ×3 (08:39→19:58)
[2022-07-27] MEDS ORDERED: Amlodipine 5 MG TAB PO SCH (10:30)
[2022-07-27] MEDS: Cefepime 1 GM in Sodium Chloride 0.9% 100 ML IVPB SCH (15:02)
[2022-07-27] MEDS: HumaLOG 300 UNITS/3 ML VIAL SC PRN (17:53)
[2022-07-27] MEDS: Vancomycin 1 GM in Premix Bag 1 BAG IVPB SCH (19:57)
[2022-07-27] MEDS: Lisinopril 20 MG TAB PO SCH (19:59)
[2022-07-27] MEDS: Melatonin 3 MG TAB PO SCH (19:59)
[2022-07-27 20:27] LABS: Vancomycin, Trough 25.2 ug/mL
[2022-07-28] MEDS: Cefepime 1 GM in Sodium Chloride 0.9% 100 ML IVPB SCH ×2 (02:07→15:07)
[2022-07-28] MEDS: Acetaminophen 325 MG TAB PO PRN (02:11)
[2022-07-28 08:23] LABS: #Basophils 0.1 thou/uL (0.0-0.2); #Eosinphils 0.4 thou/uL (0.0-0.7); #Lymphocytes 3.5 thou/uL (1.20-3.40); #Monocytes 1.3 thou/uL (0.11-0.59); #Neutrophils 10.5 thou/uL (1.40-6.50); %Basophils 0.7 % (0.0-1.0); %Eosinophils 2.7 % (0.0-10.0); %Lymphocytes 22.3 % (21.0-51.0); %Monocytes 8.2 % (0.0-10.0); %Neutrophils 66.2 % (42.0-75.0); Hemoglobin 11.3 g/dL (12.0-16.0); Mean Corpuscular HGB CONC 32.9 g/dL (32.0-36.0); Mean Corpuscular Volume 91.1 fl (78.0-98.0); Mean Platelet Volume 7.5 fL (7.4-10.4); Platelet Count 444 10x3/uL (130-400); RBC Distribution Width 11.9 % (11.5-14.5); Red Blood Cell (RBC) Count 3.77 mill/uL (4.20-5.40); White Blood Cell (WBC) Count 15.8 10x3/uL (4.8-10.8)
[2022-07-28] MEDS: Multivitamin W/ Minerals 1 TAB PO SCH (08:52)
[2022-07-28] MEDS: Polyethylene Glycol 3350 17 GM Packet PO SCH (08:52)
[2022-07-28] MEDS: hydrALAZINE 25 MG TAB PO SCH ×3 (08:52→21:49)
[2022-07-28] MEDS: Lisinopril 20 MG TAB PO SCH ×2 (08:52→21:49)
[2022-07-28] MEDS: Saccharomyces boulardii 250 MG CAP PO SCH (08:52)
[2022-07-28] MEDS: Ascorbic Acid 500 mg Chewable Tablet PO SCH (08:52)
[2022-07-28] MEDS: traMADol HCl 50 MG TAB PO SCH ×2 (08:53→21:50)
[2022-07-28] MEDS: Ferrous Sulfate 325 MG TAB PO SCH ×3 (08:53→21:49)
[2022-07-28] MEDS ORDERED: Amlodipine 5 MG TAB PO SCH (09:00)
[2022-07-28] MEDS: Melatonin 3 MG TAB PO SCH (21:49)
[2022-07-28] MEDS: Vancomycin HCl 750 MG in Sodium Chloride 0.9% 250 ML 250 ML IVPB SCH (21:55)
[2022-07-29] MEDS: Cefepime 1 GM in Sodium Chloride 0.9% 100 ML IVPB SCH ×2 (02:03→16:10)
[2022-07-29 09:28] LABS: #Basophils 0.1 thou/uL (0.0-0.2); #Eosinphils 0.5 thou/uL (0.0-0.7); #Monocytes 1.1 thou/uL (0.11-0.59); #Neutrophils 10.1 thou/uL (1.40-6.50); %Basophils 0.7 % (0.0-1.0); %Eosinophils 3.2 % (0.0-10.0); %Lymphocytes 20.4 % (21.0-51.0); %Monocytes 7.5 % (0.0-10.0); %Neutrophils 68.2 % (42.0-75.0); Hemoglobin 11.4 g/dL (12.0-16.0); Mean Corpuscular HGB CONC 32.8 g/dL (32.0-36.0); Mean Corpuscular Hemoglobin 30.1 pg (27.0-31.0); Mean Corpuscular Volume 91.8 fl (78.0-98.0); Mean Platelet Volume 7.6 fL (7.4-10.4); Platelet Count 473 10x3/uL (130-400); RBC Distribution Width 12.2 % (11.5-14.5); Red Blood Cell (RBC) Count 3.79 mill/uL (4.20-5.40); White Blood Cell (WBC) Count 14.9 10x3/uL (4.8-10.8)
[2022-07-29] MEDS: traMADol HCl 50 MG TAB PO SCH ×2 (10:45→21:47)
[2022-07-29] MEDS: Ascorbic Acid 500 mg Chewable Tablet PO SCH (10:45)
[2022-07-29] MEDS: Saccharomyces boulardii 250 MG CAP PO SCH (10:45)
[2022-07-29] MEDS: Ferrous Sulfate 325 MG TAB PO SCH ×3 (10:45→21:48)
[2022-07-29] MEDS: Lisinopril 20 MG TAB PO SCH ×2 (10:46→21:48)
[2022-07-29] MEDS: Multivitamin W/ Minerals 1 TAB PO SCH (10:46)
[2022-07-29] MEDS: Polyethylene Glycol 3350 17 GM Packet PO SCH (10:46)
[2022-07-29] MEDS: hydrALAZINE 25 MG TAB PO SCH ×3 (10:50→21:48)
[2022-07-29] MEDS: Melatonin 3 MG TAB PO SCH (21:48)
[2022-07-29] MEDS: Vancomycin HCl 750 MG in Sodium Chloride 0.9% 250 ML 250 ML IVPB SCH (21:49)
[2022-07-30] MEDS: Cefepime 1 GM in Sodium Chloride 0.9% 100 ML IVPB SCH ×2 (02:48→14:55)
[2022-07-30] MEDS: Acetaminophen 325 MG TAB PO PRN (02:53)
[2022-07-30] MEDS: traMADol HCl 50 MG TAB PO SCH ×2 (09:24→21:39)
[2022-07-30] MEDS: Saccharomyces boulardii 250 MG CAP PO SCH (09:26)
[2022-07-30] MEDS: Multivitamin W/ Minerals 1 TAB PO SCH (09:26)
[2022-07-30] MEDS: Ferrous Sulfate 325 MG TAB PO SCH ×3 (09:28→21:39)
[2022-07-30] MEDS: Ascorbic Acid 500 mg Chewable Tablet PO SCH (09:28)
[2022-07-30] MEDS: Polyethylene Glycol 3350 17 GM Packet PO SCH (09:29)
[2022-07-30] MEDS: hydrALAZINE 25 MG TAB PO SCH ×3 (09:29→21:39)
[2022-07-30] MEDS: Lisinopril 20 MG TAB PO SCH ×2 (09:29→21:39)
[2022-07-30 20:46] LABS: Vancomycin, Trough 20.4 ug/mL
[2022-07-30] MEDS: Melatonin 3 MG TAB PO SCH (21:39)
[2022-07-30] MEDS: Doxycycline 100 MG CAP PO SCH (21:43)
[2022-07-31] MEDS: cloNIDine 0.1 MG TAB PO PRN (02:05)
[2022-07-31 05:09] LABS: #Basophils 0.1 thou/uL (0.0-0.2); #Eosinphils 0.4 thou/uL (0.0-0.7); #Lymphocytes 3.2 thou/uL (1.20-3.40); #Neutrophils 7.7 thou/uL (1.40-6.50); %Basophils 0.9 % (0.0-1.0); %Eosinophils 3.3 % (0.0-10.0); %Lymphocytes 26.1 % (21.0-51.0); %Monocytes 8.2 % (0.0-10.0); %Neutrophils 61.6 % (42.0-75.0); Hemoglobin 10.2 g/dL (12.0-16.0); Mean Corpuscular HGB CONC 33.5 g/dL (32.0-36.0); Mean Corpuscular Hemoglobin 30.6 pg (27.0-31.0); Mean Corpuscular Volume 91.4 fl (78.0-98.0); Mean Platelet Volume 7.7 fL (7.4-10.4); Platelet Count 440 10x3/uL (130-400); RBC Distribution Width 12.1 % (11.5-14.5); Red Blood Cell (RBC) Count 3.34 mill/uL (4.20-5.40); White Blood Cell (WBC) Count 12.4 10x3/uL (4.8-10.8)
[2022-07-31] MEDS: traMADol HCl 50 MG TAB PO SCH ×2 (08:48→20:38)
[2022-07-31] MEDS: Polyethylene Glycol 3350 17 GM Packet PO SCH (08:48)
[2022-07-31] MEDS: Ferrous Sulfate 325 MG TAB PO SCH ×3 (08:50→20:37)
[2022-07-31] MEDS: Multivitamin W/ Minerals 1 TAB PO SCH (08:50)
[2022-07-31] MEDS: Lisinopril 20 MG TAB PO SCH ×2 (08:50→20:37)
[2022-07-31] MEDS: hydrALAZINE 25 MG TAB PO SCH ×3 (08:50→20:37)
[2022-07-31] MEDS: Ascorbic Acid 500 mg Chewable Tablet PO SCH (08:51)
[2022-07-31] MEDS: Saccharomyces boulardii 250 MG CAP PO SCH (08:51)
[2022-07-31] MEDS: Doxycycline 100 MG CAP PO SCH ×2 (08:51→20:37)
[2022-07-31] MEDS: HumaLOG 300 UNITS/3 ML VIAL SC PRN (11:54)
[2022-07-31] MEDS: Melatonin 3 MG TAB PO SCH (20:37)
[2022-08-01] MEDS: Saccharomyces boulardii 250 MG CAP PO SCH (08:23)
[2022-08-01] MEDS: Ascorbic Acid 500 mg Chewable Tablet PO SCH (08:23)
[2022-08-01] MEDS: Ferrous Sulfate 325 MG TAB PO SCH ×3 (08:23→20:09)
[2022-08-01] MEDS: hydrALAZINE 25 MG TAB PO SCH ×3 (08:23→20:09)
[2022-08-01] MEDS: Doxycycline 100 MG CAP PO SCH ×2 (08:24→20:09)
[2022-08-01] MEDS: Lisinopril 20 MG TAB PO SCH ×2 (08:24→20:09)
[2022-08-01] MEDS: Polyethylene Glycol 3350 17 GM Packet PO SCH (08:24)
[2022-08-01] MEDS: traMADol HCl 50 MG TAB PO SCH ×2 (08:24→20:11)
[2022-08-01] MEDS: Multivitamin W/ Minerals 1 TAB PO SCH (08:24)
[2022-08-01] MEDS: cloNIDine 0.1 MG TAB PO PRN (09:52)
[2022-08-01 10:24] LABS: Anion Gap 12 mmol/L (10-20); BUN (Urea Nitrogen) 33 mg/dL (9.8-20.1); Calc. Creatinine Clearance 48 mL/min (70-130); Calcium 9.3 mg/dL (7.8-10.44); Carbon Dioxide 27 mmol/L (23-31); Chloride 105 mmol/L (98-107); Estimated GFR 61; Glucose 211 mg/dL (83-110); Potassium 4.2 mmol/L (3.5-5.1); Sodium 140 mmol/L (136-145)
[2022-08-01] MEDS: HumaLOG 300 UNITS/3 ML VIAL SC PRN ×2 (11:07→17:21)
[2022-08-01] MEDS: Gabapentin 100 MG CAP PO SCH ×2 (14:10→20:09)
[2022-08-01] MEDS: Melatonin 3 MG TAB PO SCH (20:08)
[2022-08-02 04:13] LABS: #Basophils 0.1 thou/uL (0.0-0.2); #Eosinphils 0.4 thou/uL (0.0-0.7); #Lymphocytes 4.1 thou/uL (1.20-3.40); #Monocytes 1.2 thou/uL (0.11-0.59); #Neutrophils 7.3 thou/uL (1.40-6.50); %Basophils 0.8 % (0.0-1.0); %Eosinophils 3.3 % (0.0-10.0); %Lymphocytes 31.2 % (21.0-51.0); %Neutrophils 55.7 % (42.0-75.0); Mean Corpuscular HGB CONC 31.8 g/dL (32.0-36.0); Mean Corpuscular Hemoglobin 29.6 pg (27.0-31.0); Mean Corpuscular Volume 92.9 fl (78.0-98.0); Mean Platelet Volume 7.6 fL (7.4-10.4); Platelet Count 442 10x3/uL (130-400); RBC Distribution Width 12.7 % (11.5-14.5); Red Blood Cell (RBC) Count 3.39 mill/uL (4.20-5.40); White Blood Cell (WBC) Count 13.1 10x3/uL (4.8-10.8)
[2022-08-02 04:24] LABS: Prothrombin Time 13.7 sec (12.0-14.7)
[2022-08-02 04:31] LABS: Hemoglobin A1c 7.2 % (4.0-6.0)
[2022-08-02] MEDS ORDERED: Lactated Ringer's 1,000 ML IV SCH (07:00)
[2022-08-02] MEDS ORDERED: fentaNYL PF 100 MCG/2 ML SYRINGE ONE ×2 (10:43→12:09)
[2022-08-02] MEDS ORDERED: Dexamethasone 20 MG/5 ML VIAL ONE (10:51)
[2022-08-02] MEDS ORDERED: GLYCOPYRROLATE/PF 0.2 MG/ML VIAL ONE (10:51)
[2022-08-02] MEDS ORDERED: PROPOFOL 200 MG/20 ML VIAL ONE (10:51)
[2022-08-02] MEDS ORDERED: NEOSTIGMINE 3 MG/3 ML SYR 3 MG/3 ML SYRINGE ONE (10:51)
[2022-08-02] MEDS ORDERED: Lidocaine 1% PF 5 ML VIAL ONE (10:51)
[2022-08-02] MEDS ORDERED: Ondansetron PF 4 MG/2 ML Vial ONE (10:51)
[2022-08-02] MEDS ORDERED: Rocuronium Bromide 10 MG/ML (10ML VIAL) ONE (10:51)
[2022-08-02] MEDS ORDERED: Ondansetron HCl/PF 4 MG/2 ML Vial IVP PRN (12:02)
[2022-08-02] MEDS ORDERED: Promethazine HCl 25 MG/ML VIAL IM PRN (12:02)
[2022-08-02] MEDS: Polyethylene Glycol 3350 17 GM Packet PO SCH (13:27)
[2022-08-02] MEDS: traMADol HCl 50 MG TAB PO SCH ×2 (13:27→21:12)
[2022-08-02] MEDS: Saccharomyces boulardii 250 MG CAP PO SCH (13:27)
[2022-08-02] MEDS: hydrALAZINE 25 MG TAB PO SCH ×3 (13:29→21:09)
[2022-08-02] MEDS: Gabapentin 100 MG CAP PO SCH ×3 (13:30→21:09)
[2022-08-02] MEDS: Lisinopril 20 MG TAB PO SCH ×2 (13:31→21:11)
[2022-08-02] MEDS: Doxycycline 100 MG CAP PO SCH ×2 (13:32→21:08)
[2022-08-02] MEDS: Multivitamin W/ Minerals 1 TAB PO SCH (13:33)
[2022-08-02] MEDS: Ferrous Sulfate 325 MG TAB PO SCH ×3 (13:33→21:08)
[2022-08-02] MEDS: Ascorbic Acid 500 mg Chewable Tablet PO SCH (13:33)
[2022-08-02] MEDS ORDERED: Morphine 2 MG/ML VIAL SLOW IVP PRN (17:51)
[2022-08-02] MEDS: HumaLOG 300 UNITS/3 ML VIAL SC PRN ×2 (18:23→21:08)
[2022-08-02] MEDS: Melatonin 3 MG TAB PO SCH (21:12)
[2022-08-02] MEDS: Acetaminophen 325 MG TAB PO PRN (23:39)
[2022-08-03 05:41] LABS: Band 8 % (5-11); Hemoglobin 8.8 g/dL (12.0-16.0); Hypochromia SLIGHT = 6-15 cells (100X) (0-5/hpf); Lymphocytes 15 % (21-51); MDiff Complete? YES; Mean Corpuscular HGB CONC 32.2 g/dL (32.0-36.0); Mean Corpuscular Volume 93.1 fl (78.0-98.0); Mean Platelet Volume 7.7 fL (7.4-10.4); Monocytes 10 % (0-10); Neutrophil 67 % (42-75); Platelet Count 462 10x3/uL (130-400); Platelet Morphology Comment Appears Increased; RBC Distribution Width 12.6 % (11.5-14.5); Red Blood Cell (RBC) Count 2.92 mill/uL (4.20-5.40); White Blood Cell (WBC) Count 21.6 10x3/uL (4.8-10.8)
[2022-08-03 05:49] LABS: ALT (SGPT) 74 U/L (8-55); AST (SGOT) 39 U/L (5-34); Albumin 2.8 g/dL (3.4-4.8); Alkaline Phosphatase 90 U/L (40-110); Anion Gap 14 mmol/L (10-20); BUN (Urea Nitrogen) 40 mg/dL (9.8-20.1); Bilirubin, Total 0.3 mg/dL (0.2-1.2); Calc. Creatinine Clearance 46 mL/min (70-130); Calcium 9.1 mg/dL (7.8-10.44); Carbon Dioxide 23 mmol/L (23-31); Chloride 104 mmol/L (98-107); Estimated GFR 58; Globulin 2.6 g/dL (2.4-3.5); Glucose 258 mg/dL (83-110); Protein, Total 5.4 g/dL (5.8-8.1); Sodium 136 mmol/L (136-145)
[2022-08-03] MEDS: HumaLOG 300 UNITS/3 ML VIAL SC PRN ×3 (05:54→18:01)
[2022-08-03] MEDS: HYDROcodone/Acetaminophen 5/325 mg Tablet PO PRN (05:55)
[2022-08-03] MEDS: hydrALAZINE 25 MG TAB PO SCH ×3 (09:26→20:57)
[2022-08-03] MEDS: Saccharomyces boulardii 250 MG CAP PO SCH (09:26)
[2022-08-03] MEDS: traMADol HCl 50 MG TAB PO SCH ×2 (09:27→20:58)
[2022-08-03] MEDS: Ferrous Sulfate 325 MG TAB PO SCH ×3 (09:27→20:56)
[2022-08-03] MEDS: Ascorbic Acid 500 mg Chewable Tablet PO SCH (09:27)
[2022-08-03] MEDS: Doxycycline 100 MG CAP PO SCH ×2 (09:29→20:56)
[2022-08-03] MEDS: Lisinopril 20 MG TAB PO SCH ×2 (09:29→20:57)
[2022-08-03] MEDS: Multivitamin W/ Minerals 1 TAB PO SCH (09:29)
[2022-08-03] MEDS: Gabapentin 100 MG CAP PO SCH ×3 (09:30→20:56)
[2022-08-03] MEDS: Polyethylene Glycol 3350 17 GM Packet PO SCH (09:38)
[2022-08-03] MEDS: Acetaminophen 325 MG TAB PO PRN (14:25)
[2022-08-03] MEDS: Melatonin 3 MG TAB PO SCH (20:57)
[2022-08-04 05:10] LABS: #Basophils 0.1 thou/uL (0.0-0.2); #Eosinphils 0.3 thou/uL (0.0-0.7); #Lymphocytes 4.2 thou/uL (1.20-3.40); #Monocytes 1.4 thou/uL (0.11-0.59); #Neutrophils 9.5 thou/uL (1.40-6.50); %Basophils 0.7 % (0.0-1.0); %Eosinophils 2.2 % (0.0-10.0); %Lymphocytes 26.7 % (21.0-51.0); %Monocytes 9.2 % (0.0-10.0); %Neutrophils 61.2 % (42.0-75.0); Hemoglobin 8.5 g/dL (12.0-16.0); Mean Corpuscular HGB CONC 33.7 g/dL (32.0-36.0); Mean Corpuscular Hemoglobin 31.4 pg (27.0-31.0); Mean Corpuscular Volume 93.2 fl (78.0-98.0); Mean Platelet Volume 7.9 fL (7.4-10.4); Platelet Count 381 10x3/uL (130-400); RBC Distribution Width 12.8 % (11.5-14.5); Red Blood Cell (RBC) Count 2.71 mill/uL (4.20-5.40); White Blood Cell (WBC) Count 15.6 10x3/uL (4.8-10.8)
[2022-08-04 05:39] LABS: Anion Gap 11 mmol/L (10-20); BUN (Urea Nitrogen) 50 mg/dL (9.8-20.1); Calc. Creatinine Clearance 43 mL/min (70-130); Calcium 8.9 mg/dL (7.8-10.44); Carbon Dioxide 26 mmol/L (23-31); Chloride 102 mmol/L (98-107); Estimated GFR 53; Glucose 154 mg/dL (83-110); Potassium 4.7 mmol/L (3.5-5.1); Sodium 134 mmol/L (136-145)
[2022-08-04] MEDS: HumaLOG 300 UNITS/3 ML VIAL SC PRN ×3 (06:04→18:02)
[2022-08-04] MEDS: Ferrous Sulfate 325 MG TAB PO SCH ×3 (08:54→21:29)
[2022-08-04] MEDS: Lisinopril 20 MG TAB PO SCH ×2 (08:54→21:33)
[2022-08-04] MEDS: traMADol HCl 50 MG TAB PO SCH ×2 (08:54→21:34)
[2022-08-04] MEDS: Saccharomyces boulardii 250 MG CAP PO SCH (08:56)
[2022-08-04] MEDS: Polyethylene Glycol 3350 17 GM Packet PO SCH (08:56)
[2022-08-04] MEDS: hydrALAZINE 25 MG TAB PO SCH ×3 (08:56→21:30)
[2022-08-04] MEDS: Gabapentin 100 MG CAP PO SCH ×3 (08:56→21:29)
[2022-08-04] MEDS: Ascorbic Acid 500 mg Chewable Tablet PO SCH (08:56)
[2022-08-04] MEDS: Doxycycline 100 MG CAP PO SCH ×2 (08:57→21:40)
[2022-08-04] MEDS: Insulin Glargine 30 UNITS/0.3 ML VIAL SC SCH (08:57)
[2022-08-04] MEDS: Multivitamin W/ Minerals 1 TAB PO SCH (08:57)
[2022-08-04] MEDS: HYDROcodone/Acetaminophen 5/325 mg Tablet PO PRN (12:00)
[2022-08-04] MEDS ORDERED: Aspirin 81 mg Enteric Coated Tablet PO SCH (15:30)
[2022-08-04] MEDS: Melatonin 3 MG TAB PO SCH (21:34)
[2022-08-05] MEDS: Acetaminophen 325 MG TAB PO PRN (04:33)
[2022-08-05 04:50] LABS: #Basophils 0.1 thou/uL (0.0-0.2); #Eosinphils 0.3 thou/uL (0.0-0.7); #Monocytes 1.3 thou/uL (0.11-0.59); #Neutrophils 8.3 thou/uL (1.40-6.50); %Basophils 0.7 % (0.0-1.0); %Eosinophils 2.4 % (0.0-10.0); %Lymphocytes 23.1 % (21.0-51.0); %Monocytes 10.1 % (0.0-10.0); %Neutrophils 63.8 % (42.0-75.0); Hemoglobin 9.3 g/dL (12.0-16.0); Mean Corpuscular HGB CONC 34.2 g/dL (32.0-36.0); Mean Corpuscular Hemoglobin 31.7 pg (27.0-31.0); Mean Corpuscular Volume 92.8 fl (78.0-98.0); Platelet Count 416 10x3/uL (130-400); Red Blood Cell (RBC) Count 2.93 mill/uL (4.20-5.40)
[2022-08-05] MEDS: HumaLOG 300 UNITS/3 ML VIAL SC PRN ×2 (06:04→13:05)
[2022-08-05] MEDS: Ascorbic Acid 500 mg Chewable Tablet PO SCH (08:49)
[2022-08-05] MEDS: Lisinopril 20 MG TAB PO SCH (08:49)
[2022-08-05] MEDS: traMADol HCl 50 MG TAB PO SCH (08:50)
[2022-08-05] MEDS: hydrALAZINE 25 MG TAB PO SCH (08:51)
[2022-08-05] MEDS: Ferrous Sulfate 325 MG TAB PO SCH (08:51)
[2022-08-05] MEDS: Gabapentin 100 MG CAP PO SCH (08:51)
[2022-08-05] MEDS: Saccharomyces boulardii 250 MG CAP PO SCH (08:51)
[2022-08-05] MEDS: Insulin Glargine 30 UNITS/0.3 ML VIAL SC SCH (08:53)
[2022-08-05] MEDS ORDERED: Aspirin 81 mg Enteric Coated Tablet PO SCH (09:00)
[2022-08-05] MEDS: Polyethylene Glycol 3350 17 GM Packet PO SCH (09:02)
[2022-08-05] MEDS: Multivitamin W/ Minerals 1 TAB PO SCH (09:02)
[2022-08-05 11:17] VITALS: BP 141/64; TEMP 97.5
== END 2022-08-05 14:35 | DRG 853 ==
LOC: ERS 10:32 → ERHOLD 13:40 → NEURO 07-22 00:04 → 2NO 07-22 18:37
PROVIDERS: ADMIT Family Medicine; ATTEND Family Medicine
PROC: 3E03329 Introduction of Other Anti-infective into Peripheral Vein, Percutaneous Approach (ICD-10-PCS; 2022-07-21)
PROC: 0Y6C0Z1 Detachment at Right Upper Leg, High, Open Approach (ICD-10-PCS; principal; 2022-08-02)
DX: A41.9 Sepsis, unspecified organism (principal); G93.41 Metabolic encephalopathy; L89.624 Pressure ulcer of left heel, stage 4; L89.514 Pressure ulcer of right ankle, stage 4; E87.20 Acidosis, unspecified; L03.115 Cellulitis of right lower limb; N17.9 Acute kidney failure, unspecified; L97.516 Non-pressure chronic ulcer of other part of right foot with bone involvement without evidence of necrosis; M86.171 Other acute osteomyelitis, right ankle and foot; I48.11 Longstanding persistent atrial fibrillation; M86.671 Other chronic osteomyelitis, right ankle and foot; Z66 Do not resuscitate; I73.9 Peripheral vascular disease, unspecified; E11.40 Type 2 diabetes mellitus with diabetic neuropathy, unspecified; E11.51 Type 2 diabetes mellitus with diabetic peripheral angiopathy without gangrene; E11.69 Type 2 diabetes mellitus with other specified complication; E11.621 Type 2 diabetes mellitus with foot ulcer; E87.5 Hyperkalemia; N18.30 Chronic kidney disease, stage 3 unspecified; E11.22 Type 2 diabetes mellitus with diabetic chronic kidney disease; E66.9 Obesity, unspecified; G30.9 Alzheimer's disease, unspecified; F02.80 Dementia in other diseases classified elsewhere, unspecified severity, without behavioral disturbance, psychotic disturbance, mood disturbance, and anxiety; I12.9 Hypertensive chronic kidney disease with stage 1 through stage 4 chronic kidney disease, or unspecified chronic kidney disease; Z79.899 Other long term (current) drug therapy; Z88.2 Allergy status to sulfonamides; Z88.8 Allergy status to other drugs, medicaments and biological substances; Z85.3 Personal history of malignant neoplasm of breast; Z74.01 Bed confinement status; Z68.25 Body mass index [BMI] 25.0-25.9, adult; Z86.14 Personal history of Methicillin resistant Staphylococcus aureus infection; Z79.84 Long term (current) use of oral hypoglycemic drugs
CPT/HCPCS: 36415; 36416; 80048; 80053; 80202; 82565; 83036; 83605; 85025; 85610; 87040; 88307; 88311; 93005; 96374; 97139; A9579; J0692; J0696; J1100; J1650; J1815; J2185; J2272; J2405; J2704; J3370; J3370-JW; J3490; J7050; J7120

== ENCOUNTER 2022-08-28 10:48 | Inpatient (IN) | payer MEDICARE, MEDICAID ==
[2022-08-28 12:16] LABS: ALT (SGPT) 7 U/L (8-55); AST (SGOT) 10 U/L (5-34); Albumin 3.1 g/dL (3.4-4.8); Alkaline Phosphatase 89 U/L (40-110); Anion Gap 15 mmol/L (10-20); BUN (Urea Nitrogen) 45 mg/dL (9.8-20.1); Bilirubin, Total 0.2 mg/dL (0.2-1.2); Calc. Creatinine Clearance 0 mL/min (70-130); Calcium 9.7 mg/dL (7.8-10.44); Carbon Dioxide 24 mmol/L (23-31); Chloride 105 mmol/L (98-107); Estimated GFR 72; Globulin 3.1 g/dL (2.4-3.5); Glucose 122 mg/dL (83-110); Potassium 4.5 mmol/L (3.5-5.1); Protein, Total 6.2 g/dL (5.8-8.1); Sodium 139 mmol/L (136-145)
[2022-08-28 12:29] LABS: #Basophils 0.1 thou/uL (0.0-0.2); #Eosinphils 0.3 thou/uL (0.0-0.7); #Monocytes 0.9 thou/uL (0.11-0.59); #Neutrophils 7.1 thou/uL (1.40-6.50); %Basophils 1.1 % (0.0-1.0); %Eosinophils 2.3 % (0.0-10.0); %Lymphocytes 25.2 % (21.0-51.0); %Monocytes 7.7 % (0.0-10.0); %Neutrophils 62.8 % (42.0-75.0); Hemoglobin 9.5 g/dL (12.0-16.0); Mean Corpuscular HGB CONC 31.4 g/dL (32.0-36.0); Mean Corpuscular Hemoglobin 28.9 pg (27.0-31.0); Mean Corpuscular Volume 92.1 fl (78.0-98.0); Mean Platelet Volume 9.8 fL (7.4-10.4); Platelet Count 462 10x3/uL (130-400); RBC Distribution Width 13.5 % (11.5-14.5); Red Blood Cell (RBC) Count 3.29 mill/uL (4.20-5.40); White Blood Cell (WBC) Count 11.3 10x3/uL (4.8-10.8)
[2022-08-28] MEDS ORDERED: Senokot S 8.6-50 MG TAB PO PRN (13:34)
[2022-08-28] MEDS ORDERED: Acetaminophen 325 MG TAB PO PRN (13:34)
[2022-08-28] MEDS ORDERED: Ondansetron PF 4 MG/2 ML Vial IVP PRN (13:34)
[2022-08-28] MEDS ORDERED: Ondansetron ODT 4 MG TAB PO PRN (13:34)
[2022-08-28] MEDS ORDERED: Calcium Carbonate 500 MG ChewTAB PO PRN (13:34)
[2022-08-28] MEDS ORDERED: cloNIDine 0.1 MG TAB PO PRN (13:35)
[2022-08-28] MEDS ORDERED: Dextrose 5% in Water 1,000 ML IV PRN (13:42)
[2022-08-28] MEDS ORDERED: Dextrose 50% Abboject 50 ML SYRINGE SLOW IVP PRN (13:42)
[2022-08-28] MEDS ORDERED: hydrALAZINE 20 MG/ML VIAL SLOW IVP PRN (13:47)
[2022-08-28] MEDS ORDERED: Cefepime 1 GM in Sodium Chloride 0.9% 100 ML IVPB SCH (14:00)
[2022-08-28] MEDS ORDERED: cefTRIAXone (ROCEPHIN) 2 GM VIAL ONE (14:46)
[2022-08-28] MEDS ORDERED: hydrALAZINE 25 MG TAB PO SCH ×4 (15:00→21:00)
[2022-08-28] MEDS ORDERED: HYDROcodone/Acetaminophen 5/325 mg Tablet PO PRN (15:00)
[2022-08-28 17:01] VITALS: BMI 22.8
[2022-08-28] MEDS ORDERED: Vancomycin 1.5 GRAM/300 ML BAG 1.5 GM in Premix Bag 1 BAG IVPB SCH (17:15)
[2022-08-28] MEDS: Sodium Chloride 0.9% 1,000 ML IV SCH (17:24)
[2022-08-28] MEDS: Gabapentin 100 MG CAP PO SCH ×2 (17:25→21:28)
[2022-08-28] MEDS: hydrALAZINE 25 MG TAB PO SCH ×2 (17:31→21:28)
[2022-08-28] MEDS: Cefepime 1 GM in Sodium Chloride 0.9% 100 ML IVPB SCH (18:07)
[2022-08-28] MEDS ORDERED: ADMIXTURE FEE IVPB SCH (21:00)
[2022-08-28] MEDS ORDERED: CEFEPIME IVPB SCH (21:00)
[2022-08-28] MEDS: Melatonin 3 MG TAB PO SCH (21:28)
[2022-08-28] MEDS: traMADol HCl 50 MG TAB PO SCH (21:29)
[2022-08-29] MEDS: Sodium Chloride 0.9% 1,000 ML IV SCH (05:40)
[2022-08-29] MEDS: Cefepime 1 GM in Sodium Chloride 0.9% 100 ML IVPB SCH ×2 (06:08→17:09)
[2022-08-29] MEDS ORDERED: Lactated Ringer's 1,000 ML IV SCH (07:00)
[2022-08-29 08:28] LABS: #Basophils 0.1 thou/uL (0.0-0.2); #Eosinphils 0.3 thou/uL (0.0-0.7); #Monocytes 0.8 thou/uL (0.11-0.59); %Basophils 1.1 % (0.0-1.0); %Eosinophils 2.9 % (0.0-10.0); %Lymphocytes 24.2 % (21.0-51.0); %Monocytes 7.5 % (0.0-10.0); %Neutrophils 63.5 % (42.0-75.0); Hemoglobin 9.8 g/dL (12.0-16.0); Mean Corpuscular HGB CONC 30.1 g/dL (32.0-36.0); Mean Corpuscular Hemoglobin 28.2 pg (27.0-31.0); Mean Corpuscular Volume 93.9 fl (78.0-98.0); Mean Platelet Volume 9.9 fL (7.4-10.4); Platelet Count 446 10x3/uL (130-400); RBC Distribution Width 13.5 % (11.5-14.5); Red Blood Cell (RBC) Count 3.47 mill/uL (4.20-5.40)
[2022-08-29] MEDS: Aspirin 81 mg Enteric Coated Tablet PO SCH (08:54)
[2022-08-29] MEDS: Gabapentin 100 MG CAP PO SCH ×3 (08:55→21:21)
[2022-08-29] MEDS: traMADol HCl 50 MG TAB PO SCH ×2 (08:55→21:21)
[2022-08-29] MEDS: Insulin Glargine 30 UNITS/0.3 ML VIAL SC SCH (08:55)
[2022-08-29] MEDS: Lisinopril 20 MG TAB PO SCH (08:55)
[2022-08-29] MEDS: hydrALAZINE 25 MG TAB PO SCH ×3 (09:00→21:21)
[2022-08-29 09:01] LABS: ALT (SGPT) 8 U/L (8-55); AST (SGOT) 10 U/L (5-34); Albumin 3.1 g/dL (3.4-4.8); Alkaline Phosphatase 87 U/L (40-110); Anion Gap 13 mmol/L (10-20); BUN (Urea Nitrogen) 41 mg/dL (9.8-20.1); Bilirubin, Total Less than 0.2 mg/dL (0.2-1.2); Calc. Creatinine Clearance 56 mL/min (70-130); Calcium 9.2 mg/dL (7.8-10.44); Carbon Dioxide 24 mmol/L (23-31); Chloride 110 mmol/L (98-107); Estimated GFR 72; Globulin 3.1 g/dL (2.4-3.5); Glucose 110 mg/dL (83-110); Potassium 4.3 mmol/L (3.5-5.1); Protein, Total 6.2 g/dL (5.8-8.1); Sodium 143 mmol/L (136-145)
[2022-08-29] MEDS ORDERED: fentaNYL 50 mcg/mL 1 mL Vial ONE ×2 (09:32→11:10)
[2022-08-29] MEDS ORDERED: Famotidine/PF 20 mg/2ml Vial ONE (09:32)
[2022-08-29] MEDS ORDERED: Ondansetron PF 4 MG/2 ML Vial ONE (09:48)
[2022-08-29] MEDS ORDERED: PROPOFOL 200 MG/20 ML VIAL ONE (09:48)
[2022-08-29] MEDS ORDERED: Lidocaine 1% PF 5 ML VIAL ONE (09:48)
[2022-08-29] MEDS ORDERED: Dexamethasone 20 MG/5 ML VIAL ONE (09:48)
[2022-08-29] MEDS ORDERED: PHENYLEPHRINE-NS 100 MCG/ML 10 ML SYRINGE ONE (09:48)
[2022-08-29] MEDS ORDERED: Ondansetron HCl/PF 4 MG/2 ML Vial IVP PRN (10:59)
[2022-08-29] MEDS: Lactated Ringer's 1,000 ML IV SCH ×2 (12:12→21:24)
[2022-08-29] MEDS ORDERED: Ketorolac Tromethamine 30 MG/ML VIAL IVP SCH (16:15)
[2022-08-29] MEDS ORDERED: HYDROcodone/Acetaminophen 10/325 mg Tablet PO PRN (16:16)
[2022-08-29] MEDS ORDERED: VANCOMYCIN 1.25 GM/250 ML BAG 1.25 GM in Premix Bag 1 BAG IVPB SCH ×2 (17:00→18:00)
[2022-08-29] MEDS: Melatonin 3 MG TAB PO SCH (21:19)
[2022-08-29] MEDS: Ketorolac Tromethamine 30 MG/ML VIAL IVP SCH (23:28)
[2022-08-30] MEDS: Cefepime 1 GM in Sodium Chloride 0.9% 100 ML IVPB SCH (06:04)
[2022-08-30] MEDS: Ketorolac Tromethamine 30 MG/ML VIAL IVP SCH (06:05)
[2022-08-30] MEDS: HumaLOG 300 UNITS/3 ML VIAL SC PRN ×2 (06:05→17:24)
[2022-08-30 06:07] LABS: #Basophils 0.1 thou/uL (0.0-0.2); #Monocytes 1.2 thou/uL (0.11-0.59); #Neutrophils 11.3 thou/uL (1.40-6.50); %Basophils 0.3 % (0.0-1.0); %Eosinophils 0.2 % (0.0-10.0); %Monocytes 7.8 % (0.0-10.0); %Neutrophils 72.6 % (42.0-75.0); Mean Corpuscular HGB CONC 30.1 g/dL (32.0-36.0); Mean Corpuscular Hemoglobin 29.1 pg (27.0-31.0); Mean Corpuscular Volume 96.7 fl (78.0-98.0); Mean Platelet Volume 10.1 fL (7.4-10.4); Platelet Count 410 10x3/uL (130-400); RBC Distribution Width 13.7 % (11.5-14.5); Red Blood Cell (RBC) Count 2.75 mill/uL (4.20-5.40); White Blood Cell (WBC) Count 15.6 10x3/uL (4.8-10.8)
[2022-08-30 06:36] LABS: Anion Gap 11 mmol/L (10-20); BUN (Urea Nitrogen) 59 mg/dL (9.8-20.1); Calc. Creatinine Clearance 38 mL/min (70-130); Calcium 8.7 mg/dL (7.8-10.44); Carbon Dioxide 24 mmol/L (23-31); Chloride 107 mmol/L (98-107); Estimated GFR 46; Glucose 250 mg/dL (83-110); Potassium 5.1 mmol/L (3.5-5.1); Sodium 137 mmol/L (136-145)
[2022-08-30] MEDS: Lactated Ringer's 1,000 ML IV SCH ×2 (09:18→17:23)
[2022-08-30] MEDS: Lisinopril 20 MG TAB PO SCH (09:19)
[2022-08-30] MEDS: traMADol HCl 50 MG TAB PO SCH ×2 (09:20→22:22)
[2022-08-30] MEDS: hydrALAZINE 25 MG TAB PO SCH ×3 (09:20→22:22)
[2022-08-30] MEDS: Insulin Glargine 30 UNITS/0.3 ML VIAL SC SCH (09:22)
[2022-08-30] MEDS: Aspirin 81 mg Enteric Coated Tablet PO SCH (09:22)
[2022-08-30] MEDS: Gabapentin 100 MG CAP PO SCH ×3 (09:22→22:21)
[2022-08-30] MEDS: Senokot S 8.6-50 MG TAB PO SCH ×2 (09:22→22:21)
[2022-08-30] MEDS: Polyethylene Glycol 3350 17 GM Packet PO SCH (09:23)
[2022-08-30] MEDS: Acetaminophen 325 MG TAB PO SCH ×2 (12:33→17:23)
[2022-08-30] MEDS: Melatonin 3 MG TAB PO SCH (22:22)
[2022-08-31] MEDS: Acetaminophen 325 MG TAB PO SCH ×4 (02:14→18:29)
[2022-08-31] MEDS: Lactated Ringer's 1,000 ML IV SCH ×2 (07:00→13:01)
[2022-08-31] MEDS: Gabapentin 100 MG CAP PO SCH ×3 (08:32→22:52)
[2022-08-31] MEDS: Polyethylene Glycol 3350 17 GM Packet PO SCH (08:32)
[2022-08-31] MEDS: hydrALAZINE 25 MG TAB PO SCH ×3 (08:33→22:54)
[2022-08-31] MEDS: traMADol HCl 50 MG TAB PO SCH ×2 (08:34→22:54)
[2022-08-31] MEDS: Senokot S 8.6-50 MG TAB PO SCH ×2 (08:34→22:55)
[2022-08-31] MEDS: Aspirin 81 mg Enteric Coated Tablet PO SCH (08:34)
[2022-08-31] MEDS: Lisinopril 20 MG TAB PO SCH (08:34)
[2022-08-31] MEDS: Insulin Glargine 30 UNITS/0.3 ML VIAL SC SCH (08:51)
[2022-08-31] MEDS: HumaLOG 300 UNITS/3 ML VIAL SC PRN ×2 (13:02→17:32)
[2022-08-31] MEDS: Melatonin 3 MG TAB PO SCH (22:53)
[2022-09-01] MEDS: Acetaminophen 325 MG TAB PO SCH ×4 (02:55→17:19)
[2022-09-01] MEDS: Lactated Ringer's 1,000 ML IV SCH ×2 (02:55→08:47)
[2022-09-01 06:51] LABS: #Basophils 0.1 thou/uL (0.0-0.2); #Eosinphils 0.8 thou/uL (0.0-0.7); #Monocytes 1.4 thou/uL (0.11-0.59); #Neutrophils 7.3 thou/uL (1.40-6.50); %Basophils 0.8 % (0.0-1.0); %Eosinophils 5.1 % (0.0-10.0); %Lymphocytes 32.9 % (21.0-51.0); %Monocytes 9.4 % (0.0-10.0); %Neutrophils 48.2 % (42.0-75.0); Mean Corpuscular HGB CONC 28.9 g/dL (32.0-36.0); Mean Corpuscular Hemoglobin 28.3 pg (27.0-31.0); Mean Platelet Volume 10.2 fL (7.4-10.4); Platelet Count 393 10x3/uL (130-400); RBC Distribution Width 13.9 % (11.5-14.5); Red Blood Cell (RBC) Count 2.47 mill/uL (4.20-5.40); White Blood Cell (WBC) Count 15.2 10x3/uL (4.8-10.8)
[2022-09-01 06:56] LABS: Manual Diff?? YES
[2022-09-01 07:27] LABS: Anion Gap 11 mmol/L (10-20); BUN (Urea Nitrogen) 91 mg/dL (9.8-20.1); Calc. Creatinine Clearance 38 mL/min (70-130); Calcium 8.7 mg/dL (7.8-10.44); Carbon Dioxide 22 mmol/L (23-31); Chloride 108 mmol/L (98-107); Estimated GFR 45; Glucose 136 mg/dL (83-110); Potassium 5.4 mmol/L (3.5-5.1); Sodium 136 mmol/L (136-145)
[2022-09-01 07:55] LABS: CellaVision Operator ID LAB.NR; Eosinophils 2 % (0-10); Lymphocytes 29 % (21-51); Monocytes 5 % (0-10); Neutrophil 62 % (42-75); Platelet Morphology Comment Platelets Normal; Polychromasia SLIGHT = 2-3 cells HPF (0-2); Total Cell Count 100
[2022-09-01] MEDS: Polyethylene Glycol 3350 17 GM Packet PO SCH (08:48)
[2022-09-01] MEDS: hydrALAZINE 25 MG TAB PO SCH ×3 (08:49→20:56)
[2022-09-01] MEDS: Lisinopril 20 MG TAB PO SCH (08:49)
[2022-09-01] MEDS: Senokot S 8.6-50 MG TAB PO SCH ×2 (08:50→20:58)
[2022-09-01] MEDS: Gabapentin 100 MG CAP PO SCH ×3 (08:50→20:58)
[2022-09-01] MEDS: traMADol HCl 50 MG TAB PO SCH ×2 (08:50→20:57)
[2022-09-01] MEDS: Aspirin 81 mg Enteric Coated Tablet PO SCH (08:50)
[2022-09-01] MEDS: Insulin Glargine 30 UNITS/0.3 ML VIAL SC SCH (08:51)
[2022-09-01] MEDS: Sodium Chloride 0.9% 1,000 ML IV SCH ×2 (11:04→22:18)
[2022-09-01 12:38] LABS: Hemoglobin 7.1 g/dL (12.0-16.0); Platelet Count 383 10x3/uL (130-400)
[2022-09-01] MEDS: Melatonin 3 MG TAB PO SCH (20:57)
[2022-09-02] MEDS: Acetaminophen 325 MG TAB PO SCH ×5 (03:23→23:27)
[2022-09-02] MEDS: Gabapentin 100 MG CAP PO SCH ×3 (09:09→21:12)
[2022-09-02] MEDS: traMADol HCl 50 MG TAB PO SCH ×2 (09:10→21:16)
[2022-09-02] MEDS: hydrALAZINE 25 MG TAB PO SCH ×3 (09:10→21:12)
[2022-09-02] MEDS: Insulin Glargine 30 UNITS/0.3 ML VIAL SC SCH (09:12)
[2022-09-02] MEDS: Senokot S 8.6-50 MG TAB PO SCH ×2 (09:13→21:15)
[2022-09-02] MEDS: Polyethylene Glycol 3350 17 GM Packet PO SCH (09:13)
[2022-09-02] MEDS: Aspirin 81 mg Enteric Coated Tablet PO SCH (09:14)
[2022-09-02] MEDS: Sodium Chloride 0.9% 1,000 ML IV SCH ×2 (09:21→18:39)
[2022-09-02 10:07] LABS: #Basophils 0.1 thou/uL (0.0-0.2); #Eosinphils 0.7 thou/uL (0.0-0.7); #Monocytes 0.7 thou/uL (0.11-0.59); #Neutrophils 6.4 thou/uL (1.40-6.50); %Basophils 0.5 % (0.0-1.0); %Eosinophils 6.2 % (0.0-10.0); %Lymphocytes 27.4 % (21.0-51.0); %Monocytes 6.6 % (0.0-10.0); %Neutrophils 57.3 % (42.0-75.0); Hemoglobin 7.1 g/dL (12.0-16.0); Mean Corpuscular Hemoglobin 29.1 pg (27.0-31.0); Mean Corpuscular Volume 97.1 fl (78.0-98.0); Platelet Count 408 10x3/uL (130-400); RBC Distribution Width 14.1 % (11.5-14.5); Red Blood Cell (RBC) Count 2.44 mill/uL (4.20-5.40); White Blood Cell (WBC) Count 11.2 10x3/uL (4.8-10.8)
[2022-09-02 10:25] LABS: Anion Gap 9 mmol/L (10-20); BUN (Urea Nitrogen) 61 mg/dL (9.8-20.1); Calc. Creatinine Clearance 53 mL/min (70-130); Calcium 8.7 mg/dL (7.8-10.44); Carbon Dioxide 25 mmol/L (23-31); Chloride 111 mmol/L (98-107); Estimated GFR 68; Glucose 188 mg/dL (83-110); Potassium 5.2 mmol/L (3.5-5.1); Sodium 140 mmol/L (136-145)
[2022-09-02] MEDS ORDERED: Pantoprazole 40 MG VIAL IVP SCH (13:00)
[2022-09-02] MEDS: Melatonin 3 MG TAB PO SCH (21:13)
[2022-09-02] MEDS: Pantoprazole 40 MG VIAL IVP SCH (21:15)
[2022-09-03] MEDS: Sodium Chloride 0.9% 1,000 ML IV SCH ×3 (01:19→17:11)
[2022-09-03] MEDS: Acetaminophen 325 MG TAB PO SCH ×3 (04:04→18:45)
[2022-09-03 06:42] LABS: #Basophils 0.1 thou/uL (0.0-0.2); #Eosinphils 0.9 thou/uL (0.0-0.7); #Neutrophils 7.3 thou/uL (1.40-6.50); %Basophils 0.9 % (0.0-1.0); %Eosinophils 6.8 % (0.0-10.0); %Lymphocytes 27.3 % (21.0-51.0); %Monocytes 7.7 % (0.0-10.0); Hemoglobin 8.3 g/dL (12.0-16.0); Mean Corpuscular HGB CONC 30.9 g/dL (32.0-36.0); Mean Corpuscular Hemoglobin 29.1 pg (27.0-31.0); Mean Corpuscular Volume 94.4 fl (78.0-98.0); Platelet Count 427 10x3/uL (130-400); RBC Distribution Width 15.6 % (11.5-14.5); Red Blood Cell (RBC) Count 2.85 mill/uL (4.20-5.40); White Blood Cell (WBC) Count 13.3 10x3/uL (4.8-10.8)
[2022-09-03 07:02] LABS: Anion Gap 10 mmol/L (10-20); BUN (Urea Nitrogen) 53 mg/dL (9.8-20.1); Calc. Creatinine Clearance 60 mL/min (70-130); Calcium 9.1 mg/dL (7.8-10.44); Carbon Dioxide 25 mmol/L (23-31); Chloride 114 mmol/L (98-107); Estimated GFR 78; Glucose 122 mg/dL (83-110); Potassium 4.8 mmol/L (3.5-5.1); Sodium 144 mmol/L (136-145)
[2022-09-03] MEDS: hydrALAZINE 25 MG TAB PO SCH ×3 (08:35→20:33)
[2022-09-03] MEDS: Gabapentin 100 MG CAP PO SCH ×3 (08:35→20:34)
[2022-09-03] MEDS: traMADol HCl 50 MG TAB PO SCH ×2 (08:37→20:33)
[2022-09-03] MEDS: Senokot S 8.6-50 MG TAB PO SCH ×2 (08:38→20:33)
[2022-09-03] MEDS: Polyethylene Glycol 3350 17 GM Packet PO SCH (08:38)
[2022-09-03] MEDS: Pantoprazole 40 MG VIAL IVP SCH (08:38)
[2022-09-03] MEDS: Insulin Glargine 30 UNITS/0.3 ML VIAL SC SCH (08:39)
[2022-09-03] MEDS: Lisinopril 20 MG TAB PO SCH (10:05)
[2022-09-03] MEDS ORDERED: Triple Antibiotic Oint 1 GM Packet TOP SCH (16:00)
[2022-09-03] MEDS: Melatonin 3 MG TAB PO SCH (20:36)
[2022-09-04] MEDS: Acetaminophen 325 MG TAB PO SCH ×3 (00:46→13:52)
[2022-09-04] MEDS: Sodium Chloride 0.9% 1,000 ML IV SCH ×2 (05:12→13:55)
[2022-09-04 06:46] LABS: #Basophils 0.1 thou/uL (0.0-0.2); #Eosinphils 0.8 thou/uL (0.0-0.7); #Neutrophils 9.4 thou/uL (1.40-6.50); %Basophils 0.7 % (0.0-1.0); %Eosinophils 5.4 % (0.0-10.0); %Monocytes 6.7 % (0.0-10.0); %Neutrophils 65.4 % (42.0-75.0); Hemoglobin 8.4 g/dL (12.0-16.0); Mean Corpuscular HGB CONC 30.1 g/dL (32.0-36.0); Mean Corpuscular Hemoglobin 29.5 pg (27.0-31.0); Mean Corpuscular Volume 97.9 fl (78.0-98.0); Mean Platelet Volume 10.3 fL (7.4-10.4); Platelet Count 341 10x3/uL (130-400); RBC Distribution Width 15.5 % (11.5-14.5); Red Blood Cell (RBC) Count 2.85 mill/uL (4.20-5.40); White Blood Cell (WBC) Count 14.4 10x3/uL (4.8-10.8)
[2022-09-04] MEDS: Gabapentin 100 MG CAP PO SCH ×2 (08:21→15:02)
[2022-09-04] MEDS: hydrALAZINE 25 MG TAB PO SCH ×2 (08:22→15:02)
[2022-09-04] MEDS: traMADol HCl 50 MG TAB PO SCH (08:22)
[2022-09-04] MEDS: Lisinopril 20 MG TAB PO SCH (08:22)
[2022-09-04] MEDS: Polyethylene Glycol 3350 17 GM Packet PO SCH (08:23)
[2022-09-04] MEDS: Insulin Glargine 30 UNITS/0.3 ML VIAL SC SCH (08:23)
[2022-09-04] MEDS: Senokot S 8.6-50 MG TAB PO SCH (08:23)
[2022-09-04] MEDS ORDERED: Triple Antibiotic Oint 1 GM Packet TOP SCH (09:00)
[2022-09-04 16:17] VITALS: BP 131/73; TEMP 99.1
== END 2022-09-04 17:26 | DRG 617 ==
LOC: SUATTDRO 10:48 → ERS 10:48 → T4-B 15:58
PROVIDERS: ADMIT Family Medicine; ATTEND Family Medicine
PROC: 0Y6J0Z1 Detachment at Left Lower Leg, High, Open Approach (ICD-10-PCS; principal; 2022-08-29)
PROC: 30233N1 Transfusion of Nonautologous Red Blood Cells into Peripheral Vein, Percutaneous Approach (ICD-10-PCS; 2022-09-02)
DX: E11.69 Type 2 diabetes mellitus with other specified complication (principal); D62 Acute posthemorrhagic anemia; L03.115 Cellulitis of right lower limb; M86.8X7 Other osteomyelitis, ankle and foot; T87.43 Infection of amputation stump, right lower extremity; Z66 Do not resuscitate; K92.1 Melena; N17.9 Acute kidney failure, unspecified; E87.5 Hyperkalemia; I48.91 Unspecified atrial fibrillation; F03.90 Unspecified dementia, unspecified severity, without behavioral disturbance, psychotic disturbance, mood disturbance, and anxiety; I10 Essential (primary) hypertension; E78.5 Hyperlipidemia, unspecified; L89.620 Pressure ulcer of left heel, unstageable; F41.9 Anxiety disorder, unspecified; G47.00 Insomnia, unspecified; Y83.5 Amputation of limb(s) as the cause of abnormal reaction of the patient, or of later complication, without mention of misadventure at the time of the procedure; E11.51 Type 2 diabetes mellitus with diabetic peripheral angiopathy without gangrene; E11.42 Type 2 diabetes mellitus with diabetic polyneuropathy; Z88.2 Allergy status to sulfonamides; Z88.8 Allergy status to other drugs, medicaments and biological substances; Z79.899 Other long term (current) drug therapy; Z79.4 Long term (current) use of insulin; Z85.3 Personal history of malignant neoplasm of breast; Z87.440 Personal history of urinary (tract) infections; Z90.12 Acquired absence of left breast and nipple
CPT/HCPCS: 36415; 36416; 36430; 76881; 80048; 80053; 82274; 85025; 85652; 86140; 86850; 86900; 86901; 87040; 88307; 88311; 96374; C9113; J0692; J0696; J1100; J1650; J1815; J1885; J2405; J2704; J3010; J3370; J3490; J7050; J7120; P9016; S0028

== ENCOUNTER 2023-05-10 12:37 | Inpatient (IN) | payer MEDICARE, MEDICAID ==
[2023-05-10] MEDS ORDERED: Ondansetron PF 4 MG/2 ML Vial IVP PRN (15:31)
[2023-05-10] MEDS ORDERED: Acetaminophen 325 MG TAB PO PRN (15:31)
[2023-05-10] MEDS ORDERED: Bisacodyl 5 MG TAB PO PRN (15:31)
[2023-05-10] MEDS ORDERED: Sodium Polystyrene Sulfonate 15 GM (60 mL) BOT PO SCH (15:45)
[2023-05-10] MEDS ORDERED: Albuterol 2.5 MG (3 mL) NEB NEB SCH (15:45)
[2023-05-10] MEDS ORDERED: Insulin Regular 300 UNITS/3 ML VIAL IVP SCH (15:45)
[2023-05-10] MEDS ORDERED: Dextrose 5% in Water 1,000 ML IV PRN (15:51)
[2023-05-10] MEDS ORDERED: Dextrose 50% Abboject 50 ML SYRINGE SLOW IVP PRN (15:51)
[2023-05-10] MEDS ORDERED: HumaLOG 300 UNITS/3 ML VIAL SC PRN (15:51)
[2023-05-10] MEDS ORDERED: Glucagon 1 MG/ML KIT IM PRN (15:51)
[2023-05-10] MEDS ORDERED: Dextrose 50% Abboject 50 ML SYRINGE SLOW IVP SCH (16:00)
[2023-05-10] MEDS: Sodium Chloride 0.9% 1,000 ML IV SCH (16:53)
[2023-05-10 18:11] VITALS: BMI 23.0
[2023-05-10] MEDS ORDERED: Acetaminophen 650 MG Suppository PR PRN (21:44)
[2023-05-10] MEDS ORDERED: Acetaminophen 650 MG Suppository PR SCH (21:45)
[2023-05-10] MEDS ORDERED: Sodium Chloride 0.9% 500 ML IV SCH (21:45)
[2023-05-11] MEDS: Sodium Chloride 0.9% 1,000 ML IV SCH ×2 (01:08→16:06)
[2023-05-11 08:02] LABS: #Basophils 0.1 thou/uL (0.0-0.2); #Eosinphils 0.1 thou/uL (0.0-0.7); #Monocytes 1.3 thou/uL (0.11-0.59); #Neutrophils 12.9 thou/uL (1.40-6.50); %Basophils 0.6 % (0.0-1.0); %Eosinophils 0.8 % (0.0-10.0); %Lymphocytes 10.3 % (21.0-51.0); %Monocytes 8.1 % (0.0-10.0); %Neutrophils 78.6 % (42.0-75.0); Hematocrit 33.2 % (36.0-47.0); Mean Corpuscular HGB CONC 30.1 g/dL (32.0-36.0); Mean Corpuscular Volume 96.2 fl (78.0-98.0); Mean Platelet Volume 11.3 fL (7.4-10.4); Platelet Count 316 10x3/uL (130-400); Red Blood Cell (RBC) Count 3.45 mill/uL (4.20-5.40); White Blood Cell (WBC) Count 16.5 10x3/uL (4.8-10.8)
[2023-05-11 08:20] LABS: Anion Gap 13 mmol/L (10-20); BUN (Urea Nitrogen) 76 mg/dL (9.8-20.1); Calc. Creatinine Clearance 30 mL/min (70-130); Calcium 8.4 mg/dL (7.8-10.44); Carbon Dioxide 15 mmol/L (23-31); Chloride 122 mmol/L (98-107); Estimated GFR 35; Glucose 137 mg/dL (83-110); Potassium 4.7 mmol/L (3.5-5.1); Sodium 145 mmol/L (136-145)
[2023-05-11] MEDS ORDERED: Enoxaparin 40 MG (0.4 mL) SYRINGE SC SCH (09:00)
[2023-05-11] MEDS: cefTRIAXone\\ROCEPHIN 1 GM in Sodium Chloride 0.9% 100 ML IVPB SCH (09:16)
[2023-05-11] MEDS: hydrALAZINE 25 MG TAB PO SCH ×2 (16:00→21:53)
[2023-05-12] MEDS: Sodium Chloride 0.9% 1,000 ML IV SCH ×2 (05:30→17:05)
[2023-05-12 05:44] LABS: #Basophils 0.1 thou/uL (0.0-0.2); #Eosinphils 0.3 thou/uL (0.0-0.7); #Neutrophils 11.3 thou/uL (1.40-6.50); %Basophils 0.5 % (0.0-1.0); %Eosinophils 1.8 % (0.0-10.0); %Lymphocytes 13.2 % (21.0-51.0); %Monocytes 6.9 % (0.0-10.0); %Neutrophils 76.4 % (42.0-75.0); Hematocrit 29.8 % (36.0-47.0); Hemoglobin 9.2 g/dL (12.0-16.0); Mean Corpuscular HGB CONC 30.9 g/dL (32.0-36.0); Mean Corpuscular Hemoglobin 29.3 pg (27.0-31.0); Mean Corpuscular Volume 94.9 fl (78.0-98.0); Mean Platelet Volume 10.5 fL (7.4-10.4); Platelet Count 335 10x3/uL (130-400); RBC Distribution Width 12.9 % (11.5-14.5); Red Blood Cell (RBC) Count 3.14 mill/uL (4.20-5.40); White Blood Cell (WBC) Count 14.8 10x3/uL (4.8-10.8)
[2023-05-12 06:05] LABS: ALT (SGPT) 14 U/L (8-55); AST (SGOT) 11 U/L (5-34); Albumin 2.9 g/dL (3.4-4.8); Alkaline Phosphatase 71 U/L (40-110); Anion Gap 11 mmol/L (10-20); BUN (Urea Nitrogen) 48 mg/dL (9.8-20.1); Bilirubin, Total 0.2 mg/dL (0.2-1.2); Calc. Creatinine Clearance 42 mL/min (70-130); Calcium 7.9 mg/dL (7.8-10.44); Carbon Dioxide 19 mmol/L (23-31); Chloride 116 mmol/L (98-107); Estimated GFR 53; Globulin 2.8 g/dL (2.4-3.5); Glucose 144 mg/dL (83-110); Magnesium 1.4 mg/dL (1.6-2.6); Potassium 3.6 mmol/L (3.5-5.1); Protein, Total 5.7 g/dL (5.8-8.1); Sodium 142 mmol/L (136-145)
[2023-05-12] MEDS ORDERED: Enoxaparin 30 MG (0.3 mL) SYRINGE SC SCH (09:00)
[2023-05-12] MEDS: hydrALAZINE 25 MG TAB PO SCH ×3 (09:08→19:52)
[2023-05-12] MEDS: Aspirin 81 mg Enteric Coated Tablet PO SCH (09:08)
[2023-05-12] MEDS: cefTRIAXone\\ROCEPHIN 1 GM in Sodium Chloride 0.9% 100 ML IVPB SCH (09:09)
[2023-05-12] MEDS ORDERED: dilTIAZem CD 240 MG CAP PO SCH (16:45)
[2023-05-12] MEDS ORDERED: Lisinopril 20 MG TAB PO SCH (20:00)
[2023-05-12] MEDS ORDERED: hydrALAZINE 25 MG TAB PO SCH (21:30)
[2023-05-13 04:47] LABS: #Basophils 0.1 thou/uL (0.0-0.2); #Eosinphils 0.1 thou/uL (0.0-0.7); #Monocytes 0.8 thou/uL (0.11-0.59); #Neutrophils 10.8 thou/uL (1.40-6.50); %Basophils 0.5 % (0.0-1.0); %Eosinophils 0.4 % (0.0-10.0); %Lymphocytes 15.2 % (21.0-51.0); %Monocytes 5.6 % (0.0-10.0); %Neutrophils 76.9 % (42.0-75.0); Hematocrit 35.5 % (36.0-47.0); Hemoglobin 10.8 g/dL (12.0-16.0); Mean Corpuscular HGB CONC 30.4 g/dL (32.0-36.0); Mean Corpuscular Hemoglobin 29.1 pg (27.0-31.0); Mean Corpuscular Volume 95.7 fl (78.0-98.0); Mean Platelet Volume 10.8 fL (7.4-10.4); Platelet Count 326 10x3/uL (130-400); RBC Distribution Width 12.6 % (11.5-14.5); Red Blood Cell (RBC) Count 3.71 mill/uL (4.20-5.40)
[2023-05-13 05:12] LABS: Anion Gap 12 mmol/L (10-20); BUN (Urea Nitrogen) 30 mg/dL (9.8-20.1); Calc. Creatinine Clearance 49 mL/min (70-130); Calcium 8.1 mg/dL (7.8-10.44); Carbon Dioxide 18 mmol/L (23-31); Chloride 116 mmol/L (98-107); Estimated GFR 64; Glucose 162 mg/dL (83-110); Potassium 3.2 mmol/L (3.5-5.1); Sodium 143 mmol/L (136-145)
[2023-05-13] MEDS ORDERED: Potassium Bicarbonate/Cit Ac 20 MEQ TAB PO SCH ×2 (08:15→10:00)
[2023-05-13] MEDS: Lisinopril 20 MG TAB PO SCH (09:30)
[2023-05-13] MEDS: Enoxaparin 40 MG (0.4 mL) SYRINGE SC SCH (09:30)
[2023-05-13] MEDS: cefTRIAXone\\ROCEPHIN 1 GM in Sodium Chloride 0.9% 100 ML IVPB SCH (09:30)
[2023-05-13] MEDS: dilTIAZem CD 240 MG CAP PO SCH (09:30)
[2023-05-13] MEDS: Aspirin 81 mg Enteric Coated Tablet PO SCH (09:31)
[2023-05-13] MEDS: hydrALAZINE 25 MG TAB PO SCH ×3 (09:32→21:43)
[2023-05-13] MEDS: Insulin Glargine 30 UNITS/0.3 ML VIAL SC SCH (21:45)
[2023-05-14] MEDS: cefTRIAXone\\ROCEPHIN 1 GM in Sodium Chloride 0.9% 100 ML IVPB SCH (09:14)
[2023-05-14] MEDS: Lisinopril 20 MG TAB PO SCH (09:14)
[2023-05-14] MEDS: Aspirin 81 mg Enteric Coated Tablet PO SCH (09:14)
[2023-05-14] MEDS: dilTIAZem CD 240 MG CAP PO SCH (09:14)
[2023-05-14] MEDS: hydrALAZINE 25 MG TAB PO SCH ×3 (09:14→21:47)
[2023-05-14] MEDS: Enoxaparin 40 MG (0.4 mL) SYRINGE SC SCH (09:14)
[2023-05-14] MEDS ORDERED: Milk Of Magnesia 30 ML UDCUP PO PRN (09:20)
[2023-05-14] MEDS ORDERED: Amlodipine 5 MG TAB PO SCH (09:30)
[2023-05-14] MEDS: Ferrous Sulfate 325 MG TAB PO SCH ×2 (12:04→17:07)
[2023-05-14] MEDS: Gabapentin 100 MG CAP PO SCH ×2 (16:10→21:47)
[2023-05-14] MEDS: Insulin Glargine 30 UNITS/0.3 ML VIAL SC SCH (21:46)
[2023-05-15] MEDS: Gabapentin 100 MG CAP PO SCH (08:51)
[2023-05-15] MEDS: hydrALAZINE 25 MG TAB PO SCH (08:52)
[2023-05-15] MEDS: Aspirin 81 mg Enteric Coated Tablet PO SCH (08:53)
[2023-05-15] MEDS: Lisinopril 20 MG TAB PO SCH (08:53)
[2023-05-15] MEDS: Ferrous Sulfate 325 MG TAB PO SCH (08:53)
[2023-05-15] MEDS: Enoxaparin 40 MG (0.4 mL) SYRINGE SC SCH (08:54)
[2023-05-15] MEDS: cefTRIAXone\\ROCEPHIN 1 GM in Sodium Chloride 0.9% 100 ML IVPB SCH (08:54)
[2023-05-15] MEDS ORDERED: Amlodipine 5 MG TAB PO SCH (09:00)
[2023-05-15] MEDS ORDERED: Saccharomyces boulardii 250 MG CAP PO SCH (09:00)
[2023-05-15] MEDS ORDERED: Polyethylene Glycol 3350 17 GM Packet PO SCH (09:00)
[2023-05-15] MEDS ORDERED: Ascorbic Acid 500 mg Chewable Tablet PO SCH (09:00)
[2023-05-15] MEDS ORDERED: dilTIAZem 30 MG TAB PO SCH (09:26)
[2023-05-15] MEDS ORDERED: dilTIAZem 30 MG TAB PER TUBE SCH ×2 (09:29→13:00)
[2023-05-15] MEDS: dilTIAZem CD 240 MG CAP PO SCH (09:41)
[2023-05-15] MEDS ORDERED: Ferrous Sulfate 325 MG TAB PO SCH (09:45)
[2023-05-15 13:09] VITALS: BP 159/68; TEMP 99.3
[2023-05-17] MEDS ORDERED: Ferrous Sulfate 325 MG TAB PO SCH (08:00)
== END 2023-05-15 15:16 | DRG 689 ==
LOC: SURG A 14:03
PROVIDERS: ADMIT Hospitalist; ATTEND Internal Medicine
DX: N39.0 Urinary tract infection, site not specified (principal); G93.41 Metabolic encephalopathy; N17.9 Acute kidney failure, unspecified; Z66 Do not resuscitate; N18.2 Chronic kidney disease, stage 2 (mild); I12.9 Hypertensive chronic kidney disease with stage 1 through stage 4 chronic kidney disease, or unspecified chronic kidney disease; E11.22 Type 2 diabetes mellitus with diabetic chronic kidney disease; B96.4 Proteus (mirabilis) (morganii) as the cause of diseases classified elsewhere; I48.91 Unspecified atrial fibrillation; E87.5 Hyperkalemia; F03.90 Unspecified dementia, unspecified severity, without behavioral disturbance, psychotic disturbance, mood disturbance, and anxiety; Z79.84 Long term (current) use of oral hypoglycemic drugs; Z79.899 Other long term (current) drug therapy; Z85.3 Personal history of malignant neoplasm of breast; Z90.12 Acquired absence of left breast and nipple; Z90.49 Acquired absence of other specified parts of digestive tract; Z89.611 Acquired absence of right leg above knee; Z89.511 Acquired absence of right leg below knee; Z88.2 Allergy status to sulfonamides
CPT/HCPCS: 36415; 36416; 80048; 80053; 83735; 85025; 87077; 87086; 87186; 94640; J0696; J1650; J1815; J2405; J3490; J7030; J7050; J7611; J7999

== ENCOUNTER 2023-06-28 10:21 | Inpatient (IN) | payer MEDICARE, MEDICAID ==
[2023-06-28 10:56] LABS: #Monocytes 0.9 thou/uL (0.11-0.59); #Neutrophils 5.5 thou/uL (1.40-6.50); %Basophils 0.3 % (0.0-1.0); %Eosinophils 9.7 % (0.0-10.0); %Lymphocytes 25.5 % (21.0-51.0); %Monocytes 8.8 % (0.0-10.0); %Neutrophils 54.9 % (42.0-75.0); Hematocrit 32.1 % (36.0-47.0); Hemoglobin 10.1 g/dL (12.0-16.0); Mean Corpuscular HGB CONC 31.5 g/dL (32.0-36.0); Mean Corpuscular Hemoglobin 29.4 pg (27.0-31.0); Mean Corpuscular Volume 93.3 fl (78.0-98.0); Mean Platelet Volume 9.9 fL (7.4-10.4); Platelet Count 323 10x3/uL (130-400); RBC Distribution Width 13.2 % (11.5-14.5); Red Blood Cell (RBC) Count 3.44 mill/uL (4.20-5.40); White Blood Cell (WBC) Count 10.1 10x3/uL (4.8-10.8)
[2023-06-28 11:16] LABS: ALT (SGPT) 27 U/L (8-55); AST (SGOT) 18 U/L (5-34); Albumin 3.4 g/dL (3.4-4.8); Alkaline Phosphatase 94 U/L (40-110); Anion Gap 16 mmol/L (10-20); BUN (Urea Nitrogen) 43 mg/dL (9.8-20.1); Bilirubin, Total 0.2 mg/dL (0.2-1.2); Calc. Creatinine Clearance 0 mL/min (70-130); Calcium 8.9 mg/dL (7.8-10.44); Carbon Dioxide 22 mmol/L (23-31); Chloride 108 mmol/L (98-107); Estimated GFR 42; Globulin 2.6 g/dL (2.4-3.5); Glucose 132 mg/dL (83-110); Lipase 32 U/L (8-78); Magnesium 1.8 mg/dL (1.6-2.6); Potassium 4.7 mmol/L (3.5-5.1); Sodium 141 mmol/L (136-145)
[2023-06-28 11:20] LABS: Troponin I 0.037 ng/mL (< 0.028)
[2023-06-28] MEDS ORDERED: Furosemide 40 MG (4 mL) VIAL ONE (14:11)
[2023-06-28] MEDS ORDERED: Aspirin Chewable 81 MG TAB ONE (14:12)
[2023-06-28] MEDS ORDERED: Sodium Chloride 0.9% 100 ML ONE (15:06)
[2023-06-28] MEDS ORDERED: Piperacillin/Tazobactam 3.375 GM VIAL ONE (15:06)
[2023-06-28 15:30] LABS: Bacteria/HPF 2+ HPF (None Seen); Bilirubin Negative (Negative); Blood, Urine Negative (Negative); CAUTI Indications for Culture Alt mental st,lethar; Clarity Clear (Clear); Glucose, Urine (Dipstick) Normal (Negative); Ketone, Urine Negative (Negative); Leukocyte 500 Leu/uL (Negative); Nitrite 1+ (Negative); Protein, Urine (Dipstick) Negative (Neg-Trace); RBC/HPF 0-3 HPF (0-3); Specific Gravity, Urine 1.009 (1.002-1.036); Squamous Epithelial 0-3 HPF (0-3); Urobilinogen Normal mg/dL (Less than 2); pH, Urine 6.5 (5.0-9.0)
[2023-06-28 15:32] LABS: Urine Culture Reflex Yes Yes
[2023-06-28] MEDS ORDERED: Ondansetron ODT 4 MG TAB PO PRN (15:42)
[2023-06-28] MEDS ORDERED: Senokot S 8.6-50 MG TAB PO PRN (15:42)
[2023-06-28] MEDS ORDERED: Guaifenesin DM 100-10/5 ML UDCUP PO PRN (15:42)
[2023-06-28] MEDS ORDERED: Ondansetron PF 4 MG/2 ML Vial IVP PRN (15:42)
[2023-06-28] MEDS ORDERED: Acetaminophen 325 MG TAB PO PRN (15:42)
[2023-06-28] MEDS ORDERED: Bisacodyl 5 MG TAB PO PRN (15:42)
[2023-06-28] MEDS ORDERED: HYDROcodone/Acetaminophen 7.5/325 mg Tablet PO PRN (15:42)
[2023-06-28] MEDS ORDERED: Dextrose 50% Abboject 50 ML SYRINGE SLOW IVP PRN (15:47)
[2023-06-28] MEDS ORDERED: Glucagon 1 MG/ML KIT IM PRN (15:47)
[2023-06-28] MEDS ORDERED: Dextrose 5% in Water 1,000 ML IV PRN (15:47)
[2023-06-28] MEDS: Vancomycin (BATCH) 1.5 GM in Premix 1 BAG IVPB SCH (20:01)
[2023-06-28 21:33] VITALS: BMI 20.5
[2023-06-28] MEDS: Sodium Chloride 0.9% 1,000 ML IV SCH (21:42)
[2023-06-28] MEDS: Piperacillin/Tazobactam 3.375 GM in Sodium Chloride 0.9% 100 ML IVPB SCH (21:42)
[2023-06-28] MEDS: Insulin Glargine 30 UNITS/0.3 ML VIAL SC SCH (21:43)
[2023-06-28] MEDS: Gabapentin 100 MG CAP PO SCH (22:21)
[2023-06-28] MEDS: Vancomycin 1.5 GM in Sodium Chloride 0.9% 250 ML 300 ML IVPB SCH (22:24)
[2023-06-29 06:08] LABS: #Basophils 0.1 thou/uL (0.0-0.2); #Eosinphils 1.1 thou/uL (0.0-0.7); #Monocytes 1.1 thou/uL (0.11-0.59); #Neutrophils 5.5 thou/uL (1.40-6.50); %Basophils 1.2 % (0.0-1.0); %Eosinophils 10.8 % (0.0-10.0); %Lymphocytes 24.7 % (21.0-51.0); %Neutrophils 52.4 % (42.0-75.0); Hematocrit 33.8 % (36.0-47.0); Hemoglobin 10.6 g/dL (12.0-16.0); Mean Corpuscular HGB CONC 31.4 g/dL (32.0-36.0); Mean Corpuscular Hemoglobin 29.5 pg (27.0-31.0); Mean Corpuscular Volume 94.2 fl (78.0-98.0); Platelet Count 321 10x3/uL (130-400); RBC Distribution Width 13.2 % (11.5-14.5); Red Blood Cell (RBC) Count 3.59 mill/uL (4.20-5.40); White Blood Cell (WBC) Count 10.6 10x3/uL (4.8-10.8)
[2023-06-29 06:47] LABS: ALT (SGPT) 26 U/L (8-55); AST (SGOT) 20 U/L (5-34); Albumin 3.4 g/dL (3.4-4.8); Alkaline Phosphatase 92 U/L (40-110); Anion Gap 13 mmol/L (10-20); BUN (Urea Nitrogen) 39 mg/dL (9.8-20.1); Bilirubin, Total 0.4 mg/dL (0.2-1.2); Calc. Creatinine Clearance 40 mL/min (70-130); Calcium 9.6 mg/dL (7.8-10.44); Carbon Dioxide 24 mmol/L (23-31); Chloride 110 mmol/L (98-107); Estimated GFR 47; Globulin 2.7 g/dL (2.4-3.5); Glucose 86 mg/dL (83-110); Potassium 4.5 mmol/L (3.5-5.1); Protein, Total 6.1 g/dL (5.8-8.1); Sodium 142 mmol/L (136-145)
[2023-06-29] MEDS: Enoxaparin 40 MG (0.4 mL) SYRINGE SC SCH (12:38)
[2023-06-29] MEDS: Amlodipine 5 MG TAB PO SCH (12:40)
[2023-06-29] MEDS: Aspirin 81 mg Enteric Coated Tablet PO SCH (12:40)
[2023-06-29] MEDS: Ascorbic Acid 500 mg Chewable Tablet PO SCH (12:40)
[2023-06-29] MEDS ORDERED: Bisacodyl 5 MG TAB PO PRN (14:35)
[2023-06-29] MEDS ORDERED: HYDROcodone/Acetaminophen 5/325 mg Tablet PO PRN (14:35)
[2023-06-29] MEDS ORDERED: Acetaminophen 325 MG TAB PO PRN (14:35)
[2023-06-29] MEDS ORDERED: Ondansetron ODT 4 MG TAB PO PRN (14:47)
[2023-06-29] MEDS ORDERED: Ferrous Sulfate 325 MG TAB PO SCH (15:00)
[2023-06-29] MEDS ORDERED: cefTRIAXone Sodium 2,000 MG in Syringe 0 ML IVPB SCH (15:15)
[2023-06-29] MEDS: cefTRIAXone\\ROCEPHIN 2 GM in Sodium Chloride 0.9% 100 ML IVPB SCH (16:30)
[2023-06-29] MEDS: dilTIAZem 30 MG TAB PO SCH (16:31)
[2023-06-29] MEDS: Vancomycin 1 GM in Premix 1 BAG IVPB SCH (16:31)
[2023-06-29] MEDS: traMADol HCl 50 MG TAB PO SCH (21:12)
[2023-06-29] MEDS: Melatonin 3 MG TAB PO SCH (21:12)
[2023-06-29] MEDS: Insulin Glargine 30 UNITS/0.3 ML VIAL SC SCH (21:14)
[2023-06-30 04:57] LABS: #Basophils 0.2 thou/uL (0.0-0.2); #Monocytes 1.4 thou/uL (0.11-0.59); #Neutrophils 6.7 thou/uL (1.40-6.50); %Basophils 1.2 % (0.0-1.0); %Eosinophils 7.7 % (0.0-10.0); %Lymphocytes 28.1 % (21.0-51.0); %Monocytes 10.6 % (0.0-10.0); %Neutrophils 51.5 % (42.0-75.0); Hematocrit 32.8 % (36.0-47.0); Hemoglobin 9.9 g/dL (12.0-16.0); Mean Corpuscular HGB CONC 30.2 g/dL (32.0-36.0); Mean Corpuscular Hemoglobin 29.6 pg (27.0-31.0); Mean Platelet Volume 11.1 fL (7.4-10.4); Platelet Count 313 10x3/uL (130-400); RBC Distribution Width 13.3 % (11.5-14.5); Red Blood Cell (RBC) Count 3.35 mill/uL (4.20-5.40)
[2023-06-30 05:02] LABS: Mean Corpuscular Volume 97.9 fl (78.0-98.0)
[2023-06-30 06:02] LABS: Troponin I 0.048 ng/mL (< 0.028)
[2023-06-30 06:56] LABS: Anion Gap 17 mmol/L (10-20); BUN (Urea Nitrogen) 33 mg/dL (9.8-20.1); Calc. Creatinine Clearance 41 mL/min (70-130); Calcium 9.1 mg/dL (7.8-10.44); Carbon Dioxide 19 mmol/L (23-31); Chloride 114 mmol/L (98-107); Estimated GFR 48; Glucose 58 mg/dL (83-110); Potassium 4.5 mmol/L (3.5-5.1); Sodium 145 mmol/L (136-145)
[2023-06-30] MEDS: Ascorbic Acid 500 mg Chewable Tablet PO SCH (08:56)
[2023-06-30] MEDS: Lisinopril 20 MG TAB PO SCH (08:57)
[2023-06-30] MEDS: Multivitamin W/ Minerals 1 TAB PO SCH (08:58)
[2023-06-30] MEDS: Polyethylene Glycol 3350 17 GM Packet PO SCH (08:58)
[2023-06-30] MEDS: hydrALAZINE 20 MG/ML VIAL SLOW IVP PRN (11:56)
[2023-07-01 05:38] LABS: #Basophils 0.2 thou/uL (0.0-0.2); #Eosinphils 1.2 thou/uL (0.0-0.7); #Monocytes 1.4 thou/uL (0.11-0.59); #Neutrophils 7.7 thou/uL (1.40-6.50); %Basophils 1.5 % (0.0-1.0); %Eosinophils 7.6 % (0.0-10.0); %Lymphocytes 31.8 % (21.0-51.0); %Monocytes 8.7 % (0.0-10.0); %Neutrophils 49.3 % (42.0-75.0); Hematocrit 37.4 % (36.0-47.0); Hemoglobin 11.4 g/dL (12.0-16.0); Mean Corpuscular HGB CONC 30.5 g/dL (32.0-36.0); Mean Corpuscular Hemoglobin 28.9 pg (27.0-31.0); Mean Corpuscular Volume 94.7 fl (78.0-98.0); Platelet Count 390 10x3/uL (130-400); RBC Distribution Width 13.2 % (11.5-14.5); Red Blood Cell (RBC) Count 3.95 mill/uL (4.20-5.40); White Blood Cell (WBC) Count 15.7 10x3/uL (4.8-10.8)
[2023-07-01 06:07] LABS: Anion Gap 14 mmol/L (10-20); BUN (Urea Nitrogen) 29 mg/dL (9.8-20.1); Calc. Creatinine Clearance 48 mL/min (70-130); Calcium 8.9 mg/dL (7.8-10.44); Carbon Dioxide 24 mmol/L (23-31); Chloride 112 mmol/L (98-107); Estimated GFR 59; Glucose 78 mg/dL (83-110); Potassium 3.6 mmol/L (3.5-5.1); Sodium 146 mmol/L (136-145)
[2023-07-01] MEDS: HumaLOG 300 UNITS/3 ML VIAL SC PRN (17:41)
[2023-07-01] MEDS ORDERED: Heparin 5,000 UNITS/ML VIAL SC SCH (21:00)
[2023-07-02 09:35] VITALS: BP 158/74
[2023-07-02 11:36] VITALS: TEMP 98.4
== END 2023-07-02 10:54 | disposition home or self-care (01) | DRG 603 ==
LOC: ERS 10:21 → ERHOLD 15:36 → 2NO 18:56
PROVIDERS: ADMIT Internal Medicine; ATTEND Internal Medicine
DX: L03.114 Cellulitis of left upper limb (principal); N17.9 Acute kidney failure, unspecified; N39.0 Urinary tract infection, site not specified; I48.20 Chronic atrial fibrillation, unspecified; I10 Essential (primary) hypertension; F03.90 Unspecified dementia, unspecified severity, without behavioral disturbance, psychotic disturbance, mood disturbance, and anxiety; Z66 Do not resuscitate; D63.8 Anemia in other chronic diseases classified elsewhere; E11.51 Type 2 diabetes mellitus with diabetic peripheral angiopathy without gangrene; I49.3 Ventricular premature depolarization; B96.20 Unspecified Escherichia coli [E. coli] as the cause of diseases classified elsewhere; Z88.2 Allergy status to sulfonamides; Z88.8 Allergy status to other drugs, medicaments and biological substances; Z79.891 Long term (current) use of opiate analgesic; Z79.899 Other long term (current) drug therapy; Z90.49 Acquired absence of other specified parts of digestive tract; Z89.611 Acquired absence of right leg above knee; Z89.512 Acquired absence of left leg below knee
CPT/HCPCS: 36415; 36416; 70450; 71045; 80048; 80053; 81001; 83605; 83690; 83735; 83880; 84145; 84484; 85025; 86140; 87040; 87077; 87081; 87086; 87186; 93005; 96374; 96375; J0360; J0696; J1650; J1815; J1940; J2543; J3370; J3370-JW; J3490; J7050

== ENCOUNTER 2024-01-24 15:19 | Inpatient (IN) | payer MEDICAID, MEDICARE ==
[2024-01-24 15:58] LABS: #Basophils 0.09 10x3/uL (0.0-0.2); %Basophils 0.7 % (0.0-1.0); %Eosinophils 2.3 % (0.0-10.0); %Lymphocytes 27.3 % (21.0-51.0); %Monocytes 13.2 % (0.0-10.0); %Neutrophils 55.7 % (42.0-75.0); Hematocrit 31.7 % (36.0-47.0); Hemoglobin 9.6 g/dL (12.0-16.0); Mean Corpuscular HGB CONC 30.3 g/dL (32.0-36.0); Mean Corpuscular Hemoglobin 28.7 pg (27.0-31.0); Mean Corpuscular Volume 94.9 fL (78.0-98.0); Platelet Count 347 10x3/uL (130-400); RBC Distribution Width 13.8 % (11.5-14.5); Red Blood Cell (RBC) Count 3.34 mill/uL (4.20-5.40)
[2024-01-24] MEDS ORDERED: Sodium Chloride 0.9% 100 ML ONE ×2 (16:15→16:16)
[2024-01-24] MEDS ORDERED: Cefepime 2 GM VIAL ONE (16:16)
[2024-01-24 16:23] LABS: ALT (SGPT) 7 U/L (8-55); AST (SGOT) 8 U/L (5-34); Albumin 2.6 g/dL (3.4-4.8); Alkaline Phosphatase 106 U/L (40-110); Anion Gap 13 mmol/L (10-20); BUN (Urea Nitrogen) 63 mg/dL (9.8-20.1); Bilirubin, Total 0.3 mg/dL (0.2-1.2); Calc. Creatinine Clearance 0 mL/min (70-130); Calcium 8.7 mg/dL (7.8-10.44); Carbon Dioxide 16 mmol/L (23-31); Chloride 111 mmol/L (98-107); Estimated GFR 27; Globulin 3.7 g/dL (2.4-3.5); Glucose 151 mg/dL (83-110); Potassium 5.7 mmol/L (3.5-5.1); Protein, Total 6.3 g/dL (5.8-8.1); Sodium 134 mmol/L (136-145)
[2024-01-24 18:00] LABS: Bilirubin Negative (Negative); Blood, Urine 1+ (Negative); CAUTI Indications for Culture Alt mental st,lethar; Clarity Turbid (Clear); Glucose, Urine (Dipstick) Normal (Negative); Ketone, Urine Negative (Negative); Leukocyte 500 Leu/uL (Negative); Nitrite Negative (Negative); Protein, Urine (Dipstick) 70 mg/dL (Neg-Trace); RBC/HPF 21-50 HPF (0-3); Specific Gravity, Urine 1.006 (1.002-1.036); Squamous Epithelial 0-3 HPF (0-3); Urobilinogen Normal mg/dL (Less than 2); WBC/HPF Greater than 50 HPF (0-3)
[2024-01-24 18:02] LABS: Bacteria/HPF 1+ HPF (None Seen); Urine Culture Reflex Yes Yes
[2024-01-24] MEDS ORDERED: Calcium Gluc 4.6 MEQ/10 ML (100 MG/ML) SLOW IVP ONE (19:34)
[2024-01-24] MEDS ORDERED: Glucagon 1 MG/ML KIT IM PRN (19:35)
[2024-01-24] MEDS ORDERED: Dextrose 5% in Water 1,000 ML IV PRN (19:35)
[2024-01-24] MEDS ORDERED: Dextrose 50% Abboject 50 ML SYRINGE SLOW IVP PRN (19:35)
[2024-01-24] MEDS ORDERED: Ondansetron PF 4 MG/2 ML Vial IVP PRN (19:35)
[2024-01-24] MEDS ORDERED: Insulin Lispro 100 UNIT/ML 10 ML VIAL SC PRN (19:35)
[2024-01-24] MEDS ORDERED: Ondansetron ODT 4 MG TAB PO PRN (19:35)
[2024-01-24 20:24] LABS: Anion Gap 13 mmol/L (10-20); BUN (Urea Nitrogen) 63 mg/dL (9.8-20.1); Calc. Creatinine Clearance 0 mL/min (70-130); Calcium 8.4 mg/dL (7.8-10.44); Carbon Dioxide 16 mmol/L (23-31); Chloride 114 mmol/L (98-107); Estimated GFR 28; Glucose 125 mg/dL (83-110); Potassium 5.8 mmol/L (3.5-5.1); Sodium 137 mmol/L (136-145)
[2024-01-24 20:57] VITALS: BMI 46.0
[2024-01-24] MEDS: Sodium Polystyrene Sulfonate 15 GM (60 mL) BOT PO SCH (21:13)
[2024-01-24] MEDS: Insulin Regular, Human 100 UNIT/ML 10 ML VIAL IVP SCH (21:13)
[2024-01-24] MEDS ORDERED: Vancomycin Dose by Levels Sliding Scale (Wt <71) FS SCH (21:15)
[2024-01-24] MEDS: CALCIUM GLUC 1 GM/NS 50 ML 1 GM in Premix 1 BAG IVPB SCH (21:45)
[2024-01-24] MEDS: Vancomycin (BATCH) 1.75 GM in Premix 1 BAG IVPB SCH (21:50)
[2024-01-24] MEDS: Heparin 5,000 UNITS/ML VIAL SC SCH (21:52)
[2024-01-24] MEDS: Lactated Ringer's 1,000 ML IV SCH (22:45)
[2024-01-25] MEDS ORDERED: cloNIDine 0.1 MG TAB PO PRN (01:59)
[2024-01-25] MEDS: Metoprolol Tartrate 5 MG (5 mL) VIAL IVP SCH (03:46)
[2024-01-25] MEDS: dilTIAZem 30 MG TAB PO SCH ×3 (05:26→18:38)
[2024-01-25 06:00] LABS: #Basophils 0.09 10x3/uL (0.0-0.2); %Basophils 0.9 % (0.0-1.0); %Eosinophils 2.9 % (0.0-10.0); %Lymphocytes 17.2 % (21.0-51.0); %Monocytes 10.1 % (0.0-10.0); %Neutrophils 68.2 % (42.0-75.0); Hemoglobin 8.6 g/dL (12.0-16.0); Mean Corpuscular HGB CONC 30.7 g/dL (32.0-36.0); Mean Corpuscular Hemoglobin 29.2 pg (27.0-31.0); Mean Corpuscular Volume 94.9 fL (78.0-98.0); Mean Platelet Volume 10.4 fL (7.4-10.4); Platelet Count 313 10x3/uL (130-400); RBC Distribution Width 13.5 % (11.5-14.5); Red Blood Cell (RBC) Count 2.95 mill/uL (4.20-5.40)
[2024-01-25 07:02] LABS: Anion Gap 11 mmol/L (10-20); BUN (Urea Nitrogen) 59 mg/dL (9.8-20.1); Calc. Creatinine Clearance 28 mL/min (70-130); Calcium 8.5 mg/dL (7.8-10.44); Carbon Dioxide 15 mmol/L (23-31); Chloride 116 mmol/L (98-107); Estimated GFR 32; Glucose 91 mg/dL (83-110); Potassium 5.5 mmol/L (3.5-5.1); Sodium 136 mmol/L (136-145)
[2024-01-25] MEDS ORDERED: dilTIAZem 30 MG TAB PO SCH (09:00)
[2024-01-25] MEDS: Sodium Polystyrene Sulfonate 15 GM (60 mL) BOT PO SCH (09:40)
[2024-01-25] MEDS: Polyethylene Glycol 3350 17 GM Packet PO SCH (09:40)
[2024-01-25] MEDS: hydrALAZINE 25 MG TAB PO SCH (09:41)
[2024-01-25] MEDS: Aspirin 81 mg Enteric Coated Tablet PO SCH (09:42)
[2024-01-25] MEDS: Acetaminophen 325 MG TAB PO PRN (09:42)
[2024-01-25] MEDS: Ferrous Sulfate 325 MG TAB PO SCH (09:42)
[2024-01-25] MEDS: Pantoprazole DR 40 MG TAB PO SCH (09:42)
[2024-01-25] MEDS: Insulin Regular, Human 100 UNIT/ML 10 ML VIAL IVP SCH (10:36)
[2024-01-25] MEDS: Dextrose 50% Abboject 50 ML SYRINGE SLOW IVP SCH (10:36)
[2024-01-25] MEDS: Albuterol 2.5 MG (3 mL) NEB NEB SCH (11:30)
[2024-01-25 15:46] LABS: Anion Gap 13 mmol/L (10-20); BUN (Urea Nitrogen) 58 mg/dL (9.8-20.1); Calc. Creatinine Clearance 28 mL/min (70-130); Calcium 8.7 mg/dL (7.8-10.44); Carbon Dioxide 17 mmol/L (23-31); Chloride 115 mmol/L (98-107); Estimated GFR 31; Glucose 73 mg/dL (83-110); Potassium 4.7 mmol/L (3.5-5.1); Sodium 140 mmol/L (136-145)
[2024-01-25] MEDS: cefTRIAXone\\ROCEPHIN 1 GM in Sodium Chloride 0.9% 100 ML IVPB SCH (16:12)
[2024-01-25] MEDS: Vancomycin HCl 250 MG in Sodium Chloride 0.9% 100 ML IV SCH (18:01)
[2024-01-25] MEDS: Digoxin 0.5 MG/2 ML AMP SLOW IVP SCH (22:30)
[2024-01-25] MEDS: Insulin Glargine 30 UNITS/0.3 ML VIAL SC SCH (22:57)
[2024-01-26] MEDS: dilTIAZem 30 MG TAB PO SCH (01:55)
[2024-01-26 04:49] LABS: %Basophils 1.2 % (0.0-1.0); %Eosinophils 4.7 % (0.0-10.0); %Lymphocytes 31.3 % (21.0-51.0); %Monocytes 9.3 % (0.0-10.0); %Neutrophils 52.8 % (42.0-75.0); Hematocrit 29.5 % (36.0-47.0); Hemoglobin 9.2 g/dL (12.0-16.0); Mean Corpuscular HGB CONC 31.2 g/dL (32.0-36.0); Mean Corpuscular Hemoglobin 27.9 pg (27.0-31.0); Mean Corpuscular Volume 89.4 fL (78.0-98.0); Mean Platelet Volume 10.3 fL (7.4-10.4); Platelet Count 323 10x3/uL (130-400); RBC Distribution Width 13.6 % (11.5-14.5)
[2024-01-26 05:09] LABS: Anion Gap 11 mmol/L (10-20); BUN (Urea Nitrogen) 53 mg/dL (9.8-20.1); Calc. Creatinine Clearance 31 mL/min (70-130); Calcium 8.5 mg/dL (7.8-10.44); Carbon Dioxide 18 mmol/L (23-31); Chloride 116 mmol/L (98-107); Estimated GFR 35; Glucose 83 mg/dL (83-110); Potassium 4.1 mmol/L (3.5-5.1); Sodium 141 mmol/L (136-145)
[2024-01-26 11:22] VITALS: BMI 46.0
[2024-01-26 16:14] LABS: Vancomycin, Trough 17.6 ug/mL
[2024-01-26] MEDS: Vancomycin HCl 250 MG in Sodium Chloride 0.9% 100 ML IV SCH (18:09)
[2024-01-27 04:52] LABS: #Basophils 0.09 10x3/uL (0.0-0.2); %Eosinophils 2.2 % (0.0-10.0); %Lymphocytes 30.6 % (21.0-51.0); %Monocytes 7.4 % (0.0-10.0); Hematocrit 32.8 % (36.0-47.0); Mean Corpuscular HGB CONC 30.5 g/dL (32.0-36.0); Mean Corpuscular Volume 91.9 fL (78.0-98.0); Mean Platelet Volume 9.8 fL (7.4-10.4); Platelet Count 374 10x3/uL (130-400); RBC Distribution Width 13.2 % (11.5-14.5); Red Blood Cell (RBC) Count 3.57 mill/uL (4.20-5.40)
[2024-01-27 06:00] LABS: Anion Gap 16 mmol/L (10-20); BUN (Urea Nitrogen) 41 mg/dL (9.8-20.1); Calc. Creatinine Clearance 36 mL/min (70-130); Calcium 8.9 mg/dL (7.8-10.44); Carbon Dioxide 17 mmol/L (23-31); Chloride 119 mmol/L (98-107); Estimated GFR 43; Glucose 57 mg/dL (83-110); Potassium 3.6 mmol/L (3.5-5.1); Sodium 148 mmol/L (136-145)
[2024-01-27] MEDS: Insulin Lispro 100 UNIT/ML 10 ML VIAL SC PRN (12:32)
[2024-01-27] MEDS: Sodium Chloride 0.45% 1,000 ML IV SCH (16:50)
[2024-01-27] MEDS: Digoxin 0.5 MG/2 ML AMP SLOW IVP SCH (19:04)
[2024-01-28 04:48] LABS: #Basophils 0.09 10x3/uL (0.0-0.2); %Basophils 0.8 % (0.0-1.0); %Eosinophils 2.1 % (0.0-10.0); %Lymphocytes 31.8 % (21.0-51.0); %Monocytes 7.1 % (0.0-10.0); %Neutrophils 57.4 % (42.0-75.0); Hemoglobin 10.2 g/dL (12.0-16.0); Mean Corpuscular HGB CONC 31.9 g/dL (32.0-36.0); Mean Corpuscular Hemoglobin 27.9 pg (27.0-31.0); Mean Corpuscular Volume 87.4 fL (78.0-98.0); Mean Platelet Volume 9.9 fL (7.4-10.4); Platelet Count 383 10x3/uL (130-400); RBC Distribution Width 13.3 % (11.5-14.5); Red Blood Cell (RBC) Count 3.66 mill/uL (4.20-5.40)
[2024-01-28 04:54] LABS: Anion Gap 12 mmol/L (10-20); BUN (Urea Nitrogen) 30 mg/dL (9.8-20.1); Calc. Creatinine Clearance 47 mL/min (70-130); Calcium 8.8 mg/dL (7.8-10.44); Carbon Dioxide 20 mmol/L (23-31); Chloride 120 mmol/L (98-107); Estimated GFR 59; Glucose 79 mg/dL (83-110); Potassium 3.6 mmol/L (3.5-5.1); Sodium 148 mmol/L (136-145)
[2024-01-28] MEDS: Digoxin 0.125 MG TAB PO SCH (10:40)
[2024-01-28] MEDS: Metoprolol Tartrate 50 MG TAB PO SCH (14:53)
[2024-01-29 07:01] LABS: #Basophils 0.09 10x3/uL (0.0-0.2); %Basophils 0.7 % (0.0-1.0); %Eosinophils 3.2 % (0.0-10.0); %Lymphocytes 33.7 % (21.0-51.0); %Monocytes 6.1 % (0.0-10.0); %Neutrophils 55.6 % (42.0-75.0); Hematocrit 32.6 % (36.0-47.0); Hemoglobin 10.1 g/dL (12.0-16.0); Mean Corpuscular Hemoglobin 27.7 pg (27.0-31.0); Mean Corpuscular Volume 89.3 fL (78.0-98.0); Mean Platelet Volume 9.6 fL (7.4-10.4); Platelet Count 403 10x3/uL (130-400); RBC Distribution Width 13.3 % (11.5-14.5); Red Blood Cell (RBC) Count 3.65 mill/uL (4.20-5.40)
[2024-01-29 07:44] LABS: Anion Gap 11 mmol/L (10-20); BUN (Urea Nitrogen) 24 mg/dL (9.8-20.1); Calc. Creatinine Clearance 46 mL/min (70-130); Calcium 8.2 mg/dL (7.8-10.44); Carbon Dioxide 21 mmol/L (23-31); Chloride 116 mmol/L (98-107); Estimated GFR 58; Glucose 50 mg/dL (83-110); Potassium 3.7 mmol/L (3.5-5.1); Sodium 144 mmol/L (136-145)
[2024-01-29 12:07] VITALS: BP 147/73; TEMP 98.1
== END 2024-01-29 13:45 | DRG 871 ==
LOC: ERS 15:19 → 2NO 18:28
PROVIDERS: ADMIT Physician Assistant; ATTEND Internal Medicine
DX: A41.9 Sepsis, unspecified organism (principal); G93.41 Metabolic encephalopathy; N17.9 Acute kidney failure, unspecified; N39.0 Urinary tract infection, site not specified; G93.40 Encephalopathy, unspecified; I48.91 Unspecified atrial fibrillation; F41.9 Anxiety disorder, unspecified; N18.31 Chronic kidney disease, stage 3a; I12.9 Hypertensive chronic kidney disease with stage 1 through stage 4 chronic kidney disease, or unspecified chronic kidney disease; E11.22 Type 2 diabetes mellitus with diabetic chronic kidney disease; E87.5 Hyperkalemia; Z66 Do not resuscitate; F03.90 Unspecified dementia, unspecified severity, without behavioral disturbance, psychotic disturbance, mood disturbance, and anxiety; Z88.2 Allergy status to sulfonamides; Z88.8 Allergy status to other drugs, medicaments and biological substances; Z79.4 Long term (current) use of insulin; Z79.899 Other long term (current) drug therapy; Z90.49 Acquired absence of other specified parts of digestive tract; Z98.890 Other specified postprocedural states
CPT/HCPCS: 36415; 36416; 70450; 71045; 80048; 80053; 80202; 81001; 83605; 85025; 87040; 87077; 87086; 87149; 93005; 96365; 96366; 96367; J0613; J0692; J0696; J1160; J1644; J1815; J3370; J7120; J7999

== ENCOUNTER 2024-04-02 23:39 | Inpatient (IN) | payer MEDICARE, MEDICAID ==
[2024-04-03] MEDS ORDERED: NOREPINEPHRINE 8 MG/250 ML-D5W 250 ML ONE ×2 (01:10→14:45)
[2024-04-03 02:33] LABS: Hematocrit 36.3 % (36.0-47.0); Hemoglobin 11.1 g/dL (12.0-16.0); Mean Corpuscular HGB CONC 30.6 g/dL (32.0-36.0); Mean Corpuscular Hemoglobin 28.1 pg (27.0-31.0); Mean Corpuscular Volume 91.9 fL (78.0-98.0); Mean Platelet Volume 12.6 fL (7.4-10.4); Platelet Count 223 10x3/uL (130-400); RBC Distribution Width 17.2 % (11.5-14.5); Red Blood Cell (RBC) Count 3.95 mill/uL (4.20-5.40)
[2024-04-03 02:42] LABS: Bilirubin Negative (Negative); Blood, Urine 1+ (Negative); CAUTI Indications for Culture Alt mental st,lethar; Clarity Extra Turbid (Clear); Glucose, Urine (Dipstick) Normal (Negative); Ketone, Urine Negative (Negative); Leukocyte 500 Leu/uL (Negative); Nitrite Negative (Negative); Protein, Urine (Dipstick) 100 mg/dL (Neg-Trace); Specific Gravity, Urine 1.013 (1.002-1.036); Squamous Epithelial Greater than 50 HPF (0-3); Transitional Epithelial 0-3 HPF (None Seen); Urobilinogen Normal mg/dL (Less than 2); WBC/HPF Greater than 50 HPF (0-3); Yeast-Budding 3+ HPF (None Seen); pH, Urine 5.5 (5.0-9.0)
[2024-04-03 02:44] LABS: Bacteria/HPF 1+ HPF (None Seen)
[2024-04-03 02:45] LABS: Urine Culture Reflex Yes Yes
[2024-04-03 02:52] LABS: Anisocytosis SLIGHT = 6-15 cells HPF (0-5); Band 2 % (5-11); Burr Cells SLIGHT = 2-5 cells HPF (0-1); Eosinophils 1 % (0-10); Lymphocytes 11 % (21-51); Monocytes 3 % (0-10); Myelocyte 2 % (0-0); Neutrophil 81 % (42-75); Nucleated RBC (Manual Ct) 6 % (0); Platelet Adequacy Comment Platelets Normal; Polychromasia SLIGHT = 2-3 cells HPF (0-2); Smudge Cells 14.9 %
[2024-04-03 02:53] LABS: ALT (SGPT) 505 U/L (8-55); AST (SGOT) 182 U/L (5-34); Albumin 2.2 g/dL (3.4-4.8); Alkaline Phosphatase 109 U/L (40-110); Anion Gap 20 mmol/L (10-20); BUN (Urea Nitrogen) 61 mg/dL (9.8-20.1); Bilirubin, Total 0.3 mg/dL (0.2-1.2); Calc. Creatinine Clearance 0 mL/min (70-130); Calcium 7.4 mg/dL (7.8-10.44); Carbon Dioxide 15 mmol/L (23-31); Chloride 103 mmol/L (98-107); Estimated GFR 21; Globulin 2.7 g/dL (2.4-3.5); Glucose 176 mg/dL (83-110); Potassium 5.5 mmol/L (3.5-5.1); Protein, Total 4.9 g/dL (5.8-8.1); Sodium 132 mmol/L (136-145)
[2024-04-03 02:55] LABS: Actual Bicarbonate (HCO3v) 17.3 mEq/L (22-28); Base Excess -10.5 mEq/L (-2.0 to +3.0); Calcium, Ionized (venous) 1.04 mmol/L (1.16-1.32); Chloride (VBG) 100 mmol/L (98-106); Hematocrit-VBG 36 % (36.0-47.0); Hemoglobin (Hb) 12.3 g/dL (11.7-16.1); Potassium (VBG) 5.49 mmol/L (3.70-5.30); Sodium 130 mmol/L (133-146)
[2024-04-03] MEDS ORDERED: Ondansetron PF 4 MG/2 ML Vial IVP PRN (04:03)
[2024-04-03] MEDS ORDERED: Ondansetron ODT 4 MG TAB PO PRN (04:03)
[2024-04-03] MEDS ORDERED: Calcium Carbonate 500 MG ChewTAB PO PRN (04:03)
[2024-04-03] MEDS ORDERED: Acetaminophen 650 MG Suppository PR PRN (04:03)
[2024-04-03] MEDS ORDERED: Vasopressin 20 UNITS in Sodium Chloride 0.9% 50 ML IV PRN (04:05)
[2024-04-03] MEDS ORDERED: Vasopressin In 0.9 % NaCl 40 UNIT in Premix 1 BAG IV PRN (04:14)
[2024-04-03] MEDS: Meropenem 1 GM in Sodium Chloride 0.9% 100 ML IVPB SCH (05:15)
[2024-04-03] MEDS: Vancomycin (BATCH) 2 GM in Premix 1 BAG IVPB SCH (05:15)
[2024-04-03] MEDS ORDERED: Amiodarone 150 MG/3 ML VIAL ONE (05:35)
[2024-04-03] MEDS ORDERED: Hydrocortisone Sod Succ/PF 100 mg/2 ml Vial ONE ×3 (05:35→18:43)
[2024-04-03] MEDS ORDERED: Sodium Bicarb 50 MEQ/50 ML Abboject 8.4% SYRINGE ONE (05:35)
[2024-04-03] MEDS: Hydrocortisone Sod Succ/PF 100 mg/2 ml Vial IVP SCH ×2 (05:55→11:52)
[2024-04-03] MEDS: Sodium Bicarb 50 MEQ/50 ML Abboject 8.4% SYRINGE IVP SCH ×2 (06:04→22:51)
[2024-04-03] MEDS: Sodium Chloride 0.9% 1,000 ML IV SCH (06:05)
[2024-04-03 06:15] LABS: Lactic Acid 3.61 mmol/L (0.5-2.2)
[2024-04-03] MEDS: Amiodarone 150 MG, Admixture Fee 1 EACH in Dextrose 5% in Water 100 ML IVPB SCH (06:20)
[2024-04-03] MEDS: Acetaminophen 325 MG TAB PO SCH (06:38)
[2024-04-03] MEDS ORDERED: Heparin 5,000 UNITS/ML VIAL ONE ×2 (08:22→15:59)
[2024-04-03] MEDS ORDERED: Famotidine/PF 20 mg/2ml Vial ONE (08:22)
[2024-04-03] MEDS: Famotidine/PF 20 mg/2ml Vial SLOW IVP SCH (09:19)
[2024-04-03 09:21] LABS: Lactic Acid 5.78 mmol/L (0.5-2.2)
[2024-04-03] MEDS: Heparin 5,000 UNITS/ML VIAL SC SCH (09:24)
[2024-04-03] MEDS: Famotidine 20 MG TAB PO SCH (09:26)
[2024-04-03 10:13] LABS: ALT (SGPT) 520 U/L (8-55); AST (SGOT) 204 U/L (5-34); Albumin 2.3 g/dL (3.4-4.8); Alkaline Phosphatase 112 U/L (40-110); Anion Gap 25 mmol/L (10-20); BUN (Urea Nitrogen) 59 mg/dL (9.8-20.1); Bilirubin, Total 0.4 mg/dL (0.2-1.2); Calc. Creatinine Clearance 20 mL/min (70-130); Calcium 7.7 mg/dL (7.8-10.44); Carbon Dioxide 11 mmol/L (23-31); Chloride 103 mmol/L (98-107); Estimated GFR 20; Globulin 2.7 g/dL (2.4-3.5); Glucose 204 mg/dL (83-110); Sodium 133 mmol/L (136-145)
[2024-04-03 10:47] LABS: Anion Gap 23 mmol/L (10-20); BUN (Urea Nitrogen) 59 mg/dL (9.8-20.1); Calc. Creatinine Clearance 20 mL/min (70-130); Calcium 7.5 mg/dL (7.8-10.44); Carbon Dioxide 15 mmol/L (23-31); Chloride 101 mmol/L (98-107); Estimated GFR 20; Glucose 247 mg/dL (83-110); Potassium 6.3 mmol/L (3.5-5.1); Sodium 133 mmol/L (136-145)
[2024-04-03 10:54] LABS: Hematocrit 38.7 % (36.0-47.0); Hemoglobin 11.9 g/dL (12.0-16.0); Mean Corpuscular HGB CONC 30.7 g/dL (32.0-36.0); Mean Corpuscular Hemoglobin 28.4 pg (27.0-31.0); Mean Corpuscular Volume 92.4 fL (78.0-98.0); Mean Platelet Volume 12.2 fL (7.4-10.4); Platelet Count 265 10x3/uL (130-400); RBC Distribution Width 18.2 % (11.5-14.5); Red Blood Cell (RBC) Count 4.19 mill/uL (4.20-5.40)
[2024-04-03 11:25] LABS: Band 5 % (5-11); Burr Cells MODERATE= 6-15 cells HPF (0-1); Lymphocytes 2 % (21-51); Metamyelocyte 1 % (0-0); Monocytes 5 % (0-10); Neutrophil 86 % (42-75); Nucleated RBC (Manual Ct) 4 % (0); Platelet Adequacy Comment Platelets Normal; Poikilocytosis MODERATE=16-30 cells HPF (0-5); Polychromasia MODERATE = 3-4 cells HPF (0-2)
[2024-04-03] MEDS: Amiodarone 450 MG in Dextrose 5% in Water 250 ML IVPB SCH (13:25)
[2024-04-03] MEDS: Meropenem 500 MG in Sodium Chloride 0.9% 100 ML IVPB SCH (13:58)
[2024-04-03] MEDS ORDERED: Calcium Gluc 4.6 MEQ/10 ML (100 MG/ML) ONE (15:15)
[2024-04-03] MEDS: Calcium Gluc 4.6 MEQ/10 ML (100 MG/ML) SLOW IVP SCH (15:25)
[2024-04-03] MEDS ORDERED: Albuterol 2.5 MG (3 mL) NEB ONE (15:26)
[2024-04-03] MEDS: LOKELMA 10 GM PACKET PO SCH (15:28)
[2024-04-03] MEDS: Albuterol 2.5 MG (3 mL) NEB NEB SCH (15:28)
[2024-04-03] MEDS: Lactulose 20 GM (30 mL) UDCUP PO SCH (15:30)
[2024-04-03] MEDS: NOREPINEPHRINE 8 MG/250 ML-D5W 250 ML IVPB PRN (19:00)
[2024-04-03 22:21] VITALS: BMI 63.6
[2024-04-03 22:27] LABS: ALT (SGPT) 2384 U/L (8-55); AST (SGOT) Greater than 4202 U/L (5-34); Albumin 2.3 g/dL (3.4-4.8); Alkaline Phosphatase 129 U/L (40-110); Anion Gap 28 mmol/L (10-20); BUN (Urea Nitrogen) 58 mg/dL (9.8-20.1); Bilirubin, Total 0.8 mg/dL (0.2-1.2); Calc. Creatinine Clearance 18 mL/min (70-130); Calcium 7.5 mg/dL (7.8-10.44); Carbon Dioxide 9 mmol/L (23-31); Chloride 101 mmol/L (98-107); Estimated GFR 19; Globulin 2.7 g/dL (2.4-3.5); Glucose 251 mg/dL (83-110); Potassium 6.7 mmol/L (3.5-5.1); Sodium 131 mmol/L (136-145)
[2024-04-03 22:28] LABS: Lactic Acid 8.17 mmol/L (0.5-2.2)
[2024-04-03] MEDS: Insulin Regular, Human 100 UNIT/ML 10 ML VIAL IVP SCH (22:52)
[2024-04-03] MEDS: Dextrose 50% Abboject 50 ML SYRINGE ONE (23:02)
[2024-04-03] MEDS: Insulin Glargine 30 UNITS/0.3 ML VIAL SC SCH (23:03)
[2024-04-03] MEDS ORDERED: Dextrose 50% Abboject 50 ML SYRINGE SLOW IVP PRN (23:16)
[2024-04-03] MEDS: Sodium Bicarbonate 150 MEQ in Dextrose 5% in Water 1,000 ML IV SCH (23:29)
[2024-04-04] MEDS: Digoxin 0.5 MG/2 ML AMP SLOW IVP SCH (00:02)
[2024-04-04 00:48] LABS: Lactic Acid 9.75 mmol/L (0.5-2.2)
[2024-04-04 01:20] LABS: Potassium 5.3 mmol/L (3.5-5.1)
[2024-04-04 04:38] LABS: Hematocrit 37.7 % (36.0-47.0); Hemoglobin 11.5 g/dL (12.0-16.0); Mean Corpuscular HGB CONC 30.5 g/dL (32.0-36.0); Mean Corpuscular Hemoglobin 27.9 pg (27.0-31.0); Mean Corpuscular Volume 91.5 fL (78.0-98.0); Mean Platelet Volume 13.2 fL (7.4-10.4); Platelet Count 218 10x3/uL (130-400); RBC Distribution Width 18.5 % (11.5-14.5); Red Blood Cell (RBC) Count 4.12 mill/uL (4.20-5.40)
[2024-04-04 04:46] LABS: Anion Gap 25 mmol/L (10-20); Calcium 7.6 mg/dL (7.8-10.44); Carbon Dioxide 18 mmol/L (23-31); Chloride 99 mmol/L (98-107); Potassium 5.2 mmol/L (3.5-5.1); Protein, Total 4.4 g/dL (5.8-8.1); Sodium 137 mmol/L (136-145)
[2024-04-04 04:48] LABS: Phosphorus 6.9 mg/dL (2.3-4.7)
[2024-04-04 04:55] LABS: Lactic Acid 8.67 mmol/L (0.5-2.2)
[2024-04-04 05:27] LABS: ALT (SGPT) 3629 U/L (8-55); Albumin 2.1 g/dL (3.4-4.8); Alkaline Phosphatase 132 U/L (40-110); BUN (Urea Nitrogen) 60 mg/dL (9.8-20.1); Bilirubin, Total 0.8 mg/dL (0.2-1.2); Calc. Creatinine Clearance 19 mL/min (70-130); Estimated GFR 20; Globulin 2.3 g/dL (2.4-3.5); Glucose 266 mg/dL (83-110); Magnesium 2.2 mg/dL (1.6-2.6)
[2024-04-04 05:44] LABS: AST (SGOT) Greater than 4202 U/L (5-34)
[2024-04-04] MEDS: Sodium Bicarbonate 150 MEQ in Dextrose 5% in Water 1,000 ML IV SCH (07:07)
[2024-04-04 07:11] LABS: Anisocytosis SLIGHT = 6-15 cells HPF (0-5); Band 4 % (5-11); Burr Cells SLIGHT = 2-5 cells HPF (0-1); Elliptocytes SLIGHT = 2-5 cells HPF (0-1); Lymphocytes 2 % (21-51); Macrocytosis MODERATE=16-30 cells HPF (0-5); Monocytes 7 % (0-10); Neutrophil 87 % (42-75); Nucleated RBC (Manual Ct) 21 % (0); Platelet Adequacy Comment Platelets Normal; Polychromasia MODERATE = 3-4 cells HPF (0-2)
[2024-04-04] MEDS: Albumin 25% 25 GM (100 mL) BOT IVPB SCH (12:37)
[2024-04-04] MEDS ORDERED: Insulin Lispro 100 UNIT/ML 10 ML VIAL SC PRN ×2 (13:18)
[2024-04-04] MEDS ORDERED: Dextrose 50% Abboject 50 ML SYRINGE SLOW IVP PRN (13:18)
[2024-04-04] MEDS ORDERED: Glucagon 1 MG/ML KIT IM PRN (13:18)
[2024-04-04] MEDS ORDERED: Dextrose 5% in Water 1,000 ML IV PRN (13:18)
[2024-04-04] MEDS ORDERED: Insulin Regular, Human 100 UNIT/ML 10 ML VIAL SC PRN (13:57)
[2024-04-04] MEDS: Insulin Regular, Human 100 UNIT/ML 10 ML VIAL SC PRN (14:18)
[2024-04-04] MEDS ORDERED: VANCOMYCIN IVPB PRN (15:23)
[2024-04-04] MEDS ORDERED: Vancomycin Dose by Levels Sliding Scale (Wt <71) FS SCH (15:45)
[2024-04-04] MEDS: Vancomycin (BATCH) 1.5 GM in Premix 1 BAG IVPB SCH (16:32)
[2024-04-04] MEDS: Fluconazole In NaCl,Iso-Osm 400 MG in Premix 1 BAG IVPB SCH (17:49)
[2024-04-04] MEDS: Sodium Chloride 0.9% 1,000 ML IV SCH (17:50)
[2024-04-04] MEDS ORDERED: Lorazepam 2 MG/ML VIAL SLOW IVP PRN (19:41)
[2024-04-04] MEDS: Morphine 2 MG/ML VIAL SLOW IVP PRN (20:03)
[2024-04-05 10:17] VITALS: BMI 65.4
[2024-04-05] MEDS ORDERED: Fluconazole In NaCl,Iso-Osm 200 MG in Premix 1 BAG IVPB SCH (21:00)
[2024-04-05 21:24] VITALS: BP 129/88; TEMP 97.7
[2024-04-07 11:39] LABS: pH (venous) 7.195 (7.32-7.43)
== END 2024-04-05 22:15 | DRG 871 ==
LOC: ERS 23:39 → ERHOLD 04-03 04:07 → CCU 04-03 21:58 → T4-B 04-05 08:15
PROVIDERS: ADMIT Student in an Organized Health Care Education/Training Program; ATTEND Internal Medicine
PROC: 3E043XZ Introduction of Vasopressor into Central Vein, Percutaneous Approach (ICD-10-PCS; principal; 2024-04-03)
PROC: 06HY33Z Insertion of Infusion Device into Lower Vein, Percutaneous Approach (ICD-10-PCS; 2024-04-03)
PROC: 30243J0 Transfusion of Autologous Serum Albumin into Central Vein, Percutaneous Approach (ICD-10-PCS; 2024-04-03)
PROC: 3E04329 Introduction of Other Anti-infective into Central Vein, Percutaneous Approach (ICD-10-PCS; 2024-04-03)
DX: A41.89 Other specified sepsis (principal); G93.41 Metabolic encephalopathy; K72.01 Acute and subacute hepatic failure with coma; N39.0 Urinary tract infection, site not specified; N17.9 Acute kidney failure, unspecified; Z66 Do not resuscitate; Z16.24 Resistance to multiple antibiotics; Z16.12 Extended spectrum beta lactamase (ESBL) resistance; R74.01 Elevation of levels of liver transaminase levels; B96.1 Klebsiella pneumoniae [K. pneumoniae] as the cause of diseases classified elsewhere; B96.4 Proteus (mirabilis) (morganii) as the cause of diseases classified elsewhere; R65.20 Severe sepsis without septic shock; I12.9 Hypertensive chronic kidney disease with stage 1 through stage 4 chronic kidney disease, or unspecified chronic kidney disease; N18.9 Chronic kidney disease, unspecified; E11.22 Type 2 diabetes mellitus with diabetic chronic kidney disease; E11.51 Type 2 diabetes mellitus with diabetic peripheral angiopathy without gangrene; I48.91 Unspecified atrial fibrillation; Z79.01 Long term (current) use of anticoagulants; Z79.899 Other long term (current) drug therapy
CPT/HCPCS: 36415; 36416; 36556; 51702; 71045; 80053; 81001; 82805; 83605; 83735; 84100; 85025; 87040; 87077; 87086; 87149; 87186; 93005; 94640; 94760; 96361; 96374; J0282; J0612; J1160; J1450; J1644; J1720; J1815; J2185; J2272; J3370; J3490; J7030; J7070; J7611; J7999; P9047